=== PATIENT | female | born 1960 | race African-American/Black ===

== ENCOUNTER 2018-11-26 10:52 | Inpatient (IN) | payer BC ==
[~2018-11-26 10:52] MED LIST: DEXAMETHASONE SOD PHOSPHATE INJ 4 MG/1 ML VIAL ONE; GLYCOPYRROLATE 1 MG/5 ML SYRINGE ONE; NEOSTIGMINE METHYLSULFATE 10 MG/10 ML VIAL ONE; ONDANSETRON HCL INJ/PF 4 MG/2 ML SDV ONE; PHENYLEPHRINE HCL INJ/PF 10 MG/1 ML SDV ONE; ROCURONIUM BROMIDE INJ 50 MG/5 ML VIAL IV ONE; SUCCINYLCHOLINE CHLORIDE INJ 200 MG/10 ML VIAL ONE
[2018-11-26] MEDS ORDERED: NORMAL SALINE 1000 ML 1,000 ML IV ONE ×3 (11:36→16:01)
[2018-11-26] MEDS ORDERED: MORPHINE SULFATE 10 MG/ML INJ IV ONE (11:37)
[2018-11-26] MEDS ORDERED: ONDANSETRON HCL INJ/PF 4 MG/2 ML SDV IV ONE (11:37)
--- NOTE | 2018-11-26 11:40 | ER Document Report ---
ED Medical Screen (RME) - General Chief Complaint: Abdominal Pain >50 Stated Complaint: POSSIBLE HERNIA Time Seen by Provider: 11/26/18 11:27 Notes: Patient is a 58-year-old female with history of ventral hernia that presents to the emergency department for chief complaint of hernia "popping out". Patient states that she was diagnosed with a ventral hernia about 5 weeks ago, had it manually reduced in the emergency department in [place] where she lives, she is set up for surgery in January to repair this, but last night the hernia came out again and she is been having pain, nausea and vomiting, she has passed gas, has not had a bowel movement. ROS: Other than noted above, the 12 point review of systems was reviewed with the patient and were negative, all pertinent findings are included in the HPI. PHYSICAL EXAMINATION: Vital signs reviewed. GENERAL: Well-appearing, well-nourished and in no acute distress. HEAD: Atraumatic, normocephalic. EYES: Pupils equal round extraocular movements intact, conjunctiva are normal. ENT: Nares patent NECK: Normal range of motion CV: Heart regular rate and rhythm LUNGS: No respiratory distress Abdomen: Firm palpable mass in the right lower quadrant of the abdomen, tenderness to palpation Musculoskeletal: Normal range of motion NEUROLOGICAL: Normal speech PSYCH: Normal mood, normal affect. MDM: Patient seen and examined for rapid initial assessment. Vital signs reviewed. A comprehensive ED assessment and evaluation of the patient, analysis of test results and completion of the medical decision making process will be conducted by additional ED providers. *Note is created using voice recognition software and may contain spelling, syntax or grammatical errors. TRAVEL OUTSIDE OF THE [place] IN LAST 30 DAYS: No - Related Data Allergies/Adverse Reactions: lisinopril Allergy (Verified 11/26/18 11:26) Past Medical History - Social History Frequency of alcohol use: None Drug Abuse: None - Past Medical History Cardiac Medical History: Reports: Hx Hypertension Endocrine Medical History: Reports: Hx Diabetes Mellitus Type 2 Renal/ Medical History: Denies: Hx Peritoneal Dialysis Past Surgical History: Reports: Hx Section - x4 Physical Exam - Vital signs Vitals: Temp Pulse Resp BP Pulse Ox 98.9 F 65 16 152/91 H 100 11/26/18 10:57 11/26/18 10:57 11/26/18 10:57 11/26/18 10:57 11/26/18 10:57 Course - Vital Signs Vital signs: Temp Pulse Resp BP Pulse Ox 98.9 F 65 16 152/91 H 100 11/26/18 10:57 11/26/18 10:57 11/26/18 10:57 11/26/18 10:57 11/26/18 10:57
--- NOTE | 2018-11-26 12:33 | RADIOLOGY REPORT (SQ) ---
EXAM DESCRIPTION: ABDOMEN 2 VIEWS COMPLETED DATE/TIME: 11/26/2018 12:23 pm REASON FOR STUDY: incarcerated ventral hernia, vomiting COMPARISON: None. NUMBER OF VIEWS: Two views. TECHNIQUE: Supine and erect/decubitus radiographic images of the abdomen acquired. LIMITATIONS: None. FINDINGS: FREE AIR: None. No abnormal gas collections. LUNG BASES: Clear. BOWEL GAS PATTERN: Nonobstructive pattern. No dilated loops or air fluid levels. CALCIFICATIONS: A 6.1 x 5.9 cm fairly well-circumscribed calcified mass in the right hemipelvis, may represent a uterine fibroid. SOFT TISSUES: No gross mass or suggestion of organomegaly. HARDWARE: None in the abdomen. BONES: No acute fracture. Bone island distal left sacrum. OTHER: No other significant finding. IMPRESSION: 1. NO RADIOGRAPHIC EVIDENCE FOR ACUTE ABDOMINAL DISEASE. 2. Large calcified uterine fibroid. TECHNICAL DOCUMENTATION: JOB ID: [id number] [employer]- All Rights Reserved Reading location - IP/workstation name: [email or web address]
[2018-11-26 13:02] LABS: ABSOLUTE BASOPHILS # (AUTO) 0.1 10^3/uL (0.0-0.2); ABSOLUTE LYMPHOCYTES (AUTO) 0.6 10^3/uL (0.5-4.7); ABSOLUTE MONOCYTES (AUTO) 0.3 10^3/uL (0.1-1.4); ABSOLUTE NEUT (AUTO) 10.2 10^3/uL (1.7-8.2); BASOPHILS % (AUTO) 0.5 % (0-2); HEMATOCRIT 47.4 % (36.0-47.0); HEMOGLOBIN 15.5 g/dL (12.0-15.5); LYMPHOCYTES % (AUTO) 5.7 % (13-45); MEAN CORPUSCULAR HEMOGLOBIN 28.2 pg (27.0-33.4); MEAN CORPUSCULAR HGB CONC 32.7 g/dL (32.0-36.0); MEAN CORPUSCULAR VOLUME 86 fl (80-97); MONOCYTES % (AUTO) 2.7 % (3-13); PLATELET COUNT 256 10^3/uL (150-450); RED CELL DISTRIBUTION WIDTH 14.4 % (11.5-14.0); SEGMENTED NEUTROPHILS % (AUTO) 91.1 % (42-78); TOTAL CELLS COUNTED % (AUTO) 100 %; WHITE BLOOD COUNT 11.2 10^3/uL (4.0-10.5)
[2018-11-26 13:21] LABS: ALANINE AMINOTRANSFERASE 20 U/L (9-52); ALBUMIN 4.7 g/dL (3.5-5.0); ALKALINE PHOSPHATASE 84 U/L (38-126); ANION GAP 14 (5-19); ASPARTATE AMINO TRANSFERASE 28 U/L (14-36); BILIRUBIN,DIRECT 0.3 mg/dL (0.0-0.4); BLOOD UREA NITROGEN 19 mg/dL (7-20); CALCIUM 10.5 mg/dL (8.4-10.2); CARBON DIOXIDE 28 mmol/L (22-30); CHLORIDE 100 mmol/L (98-107); GLUCOSE 194 mg/dL (75-110); LIPASE 25.1 U/L (23-300); POTASSIUM 4.8 mmol/L (3.6-5.0); SODIUM 141.9 mmol/L (137-145); TOTAL PROTEIN 8.4 g/dL (6.3-8.2)
[2018-11-26 13:23] LABS: AMORPHOUS SEDIMENT,URINE TRACE /HPF; APPEARANCE,URINE TURBID; BILIRUBIN,URINE NEGATIVE (NEGATIVE); COLOR,URINE YELLOW; GLUCOSE, URINE 150 mg/dL (NEGATIVE); KETONES,URINE 20 mg/dL (NEGATIVE); LEUKOCYTE ESTERASE,URINE NEGATIVE (NEGATIVE); NITRITE,URINE NEGATIVE (NEGATIVE); PROTEIN,URINE 30 mg/dL (NEGATIVE); URINE SPECIFIC GRAVITY 1.034; UROBILINOGEN,URINE NEGATIVE mg/dL (<2.0)
--- NOTE | 2018-11-26 15:06 | RADIOLOGY REPORT (SQ) ---
EXAM DESCRIPTION: CT ABD/PELVIS WITH IV ONLY COMPLETED DATE/TIME: 11/26/2018 2:28 pm REASON FOR STUDY: fall, rib fx, RUQ and side pain COMPARISON: None. TECHNIQUE: CT scan of the abdomen and pelvis performed using helical scanning technique with dynamic intravenous contrast injection. No oral contrast. Images reviewed with lung, soft tissue, and bone windows. Reconstructed coronal and sagittal MPR images reviewed. Delayed images for evaluation of the urinary system also acquired. All images stored on PACS. All CT scanners at this facility use dose modulation, iterative reconstruction, and/or weight based d osing when appropriate to reduce radiation dose to as low as reasonably achievable (ALARA). [facility]: Dose Right [facility]: CareDose [facility]: Dose Right [facility]: Teradose 4D [facility]: Knome CONTRAST TYPE AND DOSE: contrast/concentration: Isovue 350.00 mg/ml; Total Contrast Delivered: 100.0 ml; Total Saline Delivered: 72.0 ml RENAL FUNCTION: Not recorded here. See manufacturing engineering technologist notes. RADIATION DOSE: CT Rad equipment meets quality standard of care and radiation dose reduction techniq ues were employed. CTDIvol: 19.6 - 20.9 mGy. DLP: 2304 mGy-cm.. LIMITATIONS: None. FINDINGS: LOWER CHEST: No significant findings. No nodules or infiltrates. LIVER: Normal size. No masses. No dilated ducts. SPLEEN: Normal size. No focal lesions. PANCREAS: No masses. No significant calcifications. No adjacent inflammation or peripancreatic fluid collections. Pancreatic duct not dilated. GALLBLADDER: No identified stones by CT criteria. No inflammatory changes to suggest cholecystitis. ADRENAL GLANDS: No significant masses or asymmetry. RIGHT KIDNEY AND URETER: No solid masses. No significant calcifications. No hydronephrosis or hyd roureter. LEFT KIDNEY AND URETER: No solid masses. No significant calcifications. No hydronephrosis or hydr oureter. AORTA AND VESSELS: No aneurysm. No dissection. Renal arteries, SMA, celiac without stenosis. RETROPERITONEUM: No retroperitoneal adenopathy, hemorrhage or masses. BOWEL AND PERITONEAL CAVITY: There is mildly dilated bowel in a prominent ventral hernia. There is a lso a loop of small bowel that is somewhat dilated in the pelvis on the left. There is thickening of the wall of this loop of bowel. There is moderate ascites. APPENDIX: Not identified. PELVIS: There is large calcified uterine fibroid. No abnormal pelvic mass. There is some free fluid in the pelvis. ABDOMINAL WALL: 5 cm wide ventral hernia contains a loop of somewhat dilated bowel. BONES: Anterolisthesis of L4 on L5. No osseous lesions. No fracture is appreciated. OTHER: No other significant finding. IMPRESSION: 1. There is some mildly dilated small bowel in a ventral hernia and within the pelvis c oncerning for closed loop obstruction. 2. Anterolisthesis of L4 on L5. 3. Ascites. COMMENT: Pertinent findings on the imaging study reported as a CRITICAL RESULT to ECTOR Wadsworth PA-C at15:01 on 11/26/2018. TECHNICAL DOCUMENTATION: JOB ID: [id number] Quality ID # [id number]: Final reports with documentation of one or more dose reduction techniques (e.g., Au tomated exposure control, adjustment of the mA and/or kV according to patient size, use of iterative reconstruction technique) 2010 [employer]- All Rights Reserved Reading location - IP/workstation name: [email or web address]
--- NOTE | 2018-11-26 15:16 | ER Document Report ---
ED General - General Chief Complaint: Abdominal Pain >50 Stated Complaint: POSSIBLE HERNIA Time Seen by Provider: 11/26/18 11:27 Notes: 58-year-old female with history of ventral hernia that presents to the emergency department for chief complaint of hernia "popping out". Patient states that she was diagnosed with a ventral hernia about 5 weeks ago, had it manually reduced in the emergency department in [place] where she lives, she is set up for surgery in January to repair this, but last night the hernia came out again and she is been having pain, nausea and vomiting, she has passed gas, has not had a bowel movement. Patient denies shortness of breath or chest pain, fevers or chills, no other symptoms. TRAVEL OUTSIDE OF THE [place] IN LAST 30 DAYS: No - Related Data Allergies/Adverse Reactions: lisinopril Allergy (Verified 11/26/18 11:26) Past Medical History - Social History Smoking Status: Former Smoker Frequency of alcohol use: None Drug Abuse: None Family History: None Patient has suicidal ideation: No Patient has homicidal ideation: No - Past Medical History Cardiac Medical History: Reports: Hx Hypertension Endocrine Medical History: Reports: Hx Diabetes Mellitus Type 2 Renal/ Medical History: Denies: Hx Peritoneal Dialysis Past Surgical History: Reports: Hx Section - x4 Review of Systems - Review of Systems Constitutional: See HPI EENT: No symptoms reported Cardiovascular: See HPI Respiratory: See HPI Gastrointestinal: See HPI Genitourinary: No symptoms reported Female Genitourinary: No symptoms reported Musculoskeletal: No symptoms reported Skin: No symptoms reported Hematologic/Lymphatic: No symptoms reported Neurological/Psychological: No symptoms reported Physical Exam - Vital signs Vitals: Temp Pulse Resp BP Pulse Ox 98.9 F 65 16 152/91 H 100 11/26/18 10:57 11/26/18 10:57 11/26/18 10:57 11/26/18 10:57 11/26/18 10:57 - Notes Notes: PHYSICAL EXAMINATION: Reviewed vital signs and charting by RN GENERAL: Alert, interacts well. No acute distress. HEAD: Normocephalic, atraumatic. EYES: Pupils equal, round. Extraocular movements intact. ENT: Oral mucosa moist, tongue midline. NECK: Full range of motion. Trachea midline. LUNGS: Clear to auscultation bilaterally, no wheezes, rales, or rhonchi. No respiratory distress. HEART: Regular rate and rhythm. No murmur ABDOMEN: Firm, large mass right lower quadrant consistent with ventral hernia, distended. Bowel sounds present in all 4 quadrants. EXTREMITIES: Moves all 4 extremities spontaneously. No edema, No cyanosis. NEUROLOGICAL: Alert and oriented. Normal speech. PSYCH: Normal affect, normal mood. SKIN: Warm, dry, normal turgor. No rashes or lesions noted. Course - Re-evaluation Re-evalutation: 11/26/18 15:15 Overall well-appearing female presents for her existing ventral hernia "popping out". CT abdomen with IV contrast only obtained from radiologist with critical finding for concern for closed loop small bowel obstruction. Called Dr. Moya, surgical list on-call, who is going to formally assess the patient. Of note patient with an initial lactate of 2.5 and she received 1 L of fluids. I will start a second liter of fluids. 11/26/18 15:[address] Moya, he is going to look at CT imaging and admit patient. He is concerned that there may be ischemic bowel and may need to go to the OR. Plan is to give hydralazine 10 mg IV 1 time. 1 second liter is infused we will give normal saline 125 mL's per hour. Second lactate is ordered and will be drawn after second bolus is given. 11/26/18 16:10 Dr. Moya is taking patient to the OR and excepting patient for full admission. - Vital Signs Vital signs: Temp Pulse Resp BP Pulse Ox 98.5 F 65 16 173/91 H 100 11/26/18 15:42 11/26/18 10:57 11/26/18 15:39 11/26/18 15:39 11/26/18 15:39 - Laboratory Result Diagrams: 11/26/18 12:39 11/26/18 12:39 Laboratory results interpreted by me: 11/26/18 11/26/18 11/26/18 12:39 12:39 12:39 WBC 11.2 H RBC 5.50 H Hct 47.4 H RDW 14.4 H Seg Neutrophils % 91.1 H Lymphocytes % 5.7 L Monocytes % 2.7 L Absolute Neutrophils 10.2 H Glucose 194 H Lactic Acid 2.5 H Calcium 10.5 H Total Protein 8.4 H Urine Protein Urine Glucose (UA) Urine Ketones Urine Blood 11/26/18 12:39 WBC RBC Hct RDW Seg Neutrophils % Lymphocytes % Monocytes % Absolute Neutrophils Glucose Lactic Acid Calcium Total Protein Urine Protein 30 H Urine Glucose (UA) 150 H Urine Ketones 20 H Urine Blood SMALL H Discharge - Discharge Clinical Impression: SBO (small bowel obstruction) Condition: Stable Disposition: ADMITTED INPATIENT Admitting Provider: Surgicalist Unit Admitted: Surgical Floor
--- NOTE | 2018-11-26 15:57 | PDOC H&P ---
History of Present Illness Patient complains of: abdominal pain, bulge History of Present Illness: MC VILLELA is a 58 year old female with a hx of lower right abdominal ventral hernia scheduled to be operated on by a surgeon in [place]; however, she is from out of town visiting family and noted the onset of painful swelling in the right lateral abdominal quadrant. She reports nausea and vomiting, last BM yesterday. Past Medical History Cardiac Medical History: Reports: Hypertension Endocrine Medical History: Reports: Diabetes Mellitus Type 2 Past Surgical History Past Surgical History: Reports: Section - x4 Social History Smoking Status: Former Smoker Family History Parental Family History Reviewed: No Children Family History Reviewed: No Sibling(s) Family History Reviewed.: No Medication/Allergy Allergies/Adverse Reactions: lisinopril Allergy (Verified 11/26/18 11:26) Physical Exam Vital Signs: Temp Pulse Resp BP Pulse Ox 98.9 F 65 19 198/93 H 98 11/26/18 10:57 11/26/18 10:57 11/26/18 14:00 11/26/18 14:00 11/26/18 14:00 Intake & Output 11/25/18 11/26/18 11/27/18 06:59 06:59 06:59 Weight 102.9 kg General appearance: PRESENT: no acute distress Head exam: PRESENT: atraumatic Eye exam: PRESENT: EOMI Mouth exam: PRESENT: neck supple Teeth exam: PRESENT: poor dentation Neck exam: PRESENT: full ROM Respiratory exam: PRESENT: clear to auscultation michael Cardiovascular exam: PRESENT: RRR GI/Abdominal exam: PRESENT: tenderness - in the RLQ with large indurated mass about 15 cm in doiameter with grimacing on palpation Extremities exam: PRESENT: full ROM Musculoskeletal exam: PRESENT: full ROM Neurological exam: PRESENT: alert, awake Psychiatric exam: PRESENT: appropriate affect Skin exam: PRESENT: warm Results Laboratory Results: 11/26/18 12:39 11/26/18 12:39 11/26/18 11/26/18 11/26/18 12:39 12:39 12:39 WBC 11.2 H RBC 5.50 H Hgb 15.5 Hct 47.4 H MCV 86 MCH 28.2 MCHC 32.7 RDW 14.4 H Plt Count 256 Seg Neutrophils % 91.1 H Lymphocytes % 5.7 L Monocytes % 2.7 L Eosinophils % 0.0 Basophils % 0.5 Absolute Neutrophils 10.2 H Absolute Lymphocytes 0.6 Absolute Monocytes 0.3 Absolute Eosinophils 0.0 Absolute Basophils 0.1 Sodium 141.9 Potassium 4.8 Chloride 100 Carbon Dioxide 28 Anion Gap 14 BUN 19 Creatinine 0.79 Est GFR ( Amer) > 60 Est GFR (Non-Af Amer) > 60 Glucose 194 H Lactic Acid 2.5 H Calcium 10.5 H Total Bilirubin 1.0 AST 28 ALT 20 Alkaline Phosphatase 84 Total Protein 8.4 H Albumin 4.7 Lipase 25.1 Urine Color Urine Appearance Urine pH Ur Specific [place] Urine Protein Urine Glucose (UA) Urine Ketones Urine Blood Urine Nitrite Ur Leukocyte Esterase Urine WBC (Auto) Urine RBC (Auto) 11/26/18 12:39 WBC RBC Hgb Hct MCV MCH MCHC RDW Plt Count Seg Neutrophils % Lymphocytes % Monocytes % Eosinophils % Basophils % Absolute Neutrophils Absolute Lymphocytes Absolute Monocytes Absolute Eosinophils Absolute Basophils Sodium Potassium Chloride Carbon Dioxide Anion Gap BUN Creatinine Est GFR ( Amer) Est GFR (Non-Af Amer) Glucose Lactic Acid Calcium Total Bilirubin AST ALT Alkaline Phosphatase Total Protein Albumin Lipase Urine Color YELLOW Urine Appearance TURBID Urine pH 5.0 Ur Specific [place] 1.034 Urine Protein 30 H Urine Glucose (UA) 150 H Urine Ketones 20 H Urine Blood SMALL H Urine Nitrite NEGATIVE Ur Leukocyte Esterase NEGATIVE Urine WBC (Auto) 1 Urine RBC (Auto) 1 Impressions: Abdomen X-Ray 11/26/18 11:36 IMPRESSION: 1. NO RADIOGRAPHIC EVIDENCE FOR ACUTE ABDOMINAL DISEASE. 2. Large calcified uterine fibroid. Abdomen/Pelvis CT 11/26/18 13:51 IMPRESSION: 1. There is some mildly dilated small bowel in a ventral hernia and within the pelvis concerning for closed loop obstruction. 2. Anterolisthesis of L4 on L5. 3. Ascites. Assessment & Plan - Plan Summary Plan Summary: A/ RLQ abdominal pain with bulge Incarcerated ventral hernia on physical exam and CT scan, possibly strangulated Elevated lactic acid (2.0) nausea/vomiting HTN not treated (BP 73/91) Mild leukocytosis P/ Urgent open repair with absorbable mesh tonight, possible bowel resection NPO IVF Preop Abx (Mefoxin 2 grams) Admit as inpatient Hydralazine 10 mg IVP preop for her hypertension Procedure, risks, benefits, complications explained to the patient, she understand all the above and decides to proceed.
[2018-11-26] MEDS ORDERED: NORMAL SALINE 1000 ML 1,000 ML IV PRN (15:59)
[2018-11-26] MEDS ORDERED: HYDRALAZINE HCL INJ/PF 20 MG/1 ML SDV IV ONE (16:00)
[2018-11-26] MEDS ORDERED: FENTANYL CITRATE INJ/PF 250 MCG/5 ML AMPULE ONE (16:32)
[2018-11-26] MEDS ORDERED: ACETAMINOPHEN 1,000 MG/100 ML RTUPB IV ONE (16:33)
[2018-11-26] MEDS ORDERED: HYDROMORPHONE HCL INJ/PF 2 MG/ML AMPULE ONE (16:33)
[2018-11-26] MEDS ORDERED: PROPOFOL INJ 200 MG/20 ML VIAL IV ONE (16:33)
[2018-11-26] MEDS ORDERED: MIDAZOLAM 2 MG/2 ML INJ ONE (16:33)
[2018-11-26] MEDS ORDERED: CEFOXITIN 1 GM/D5W RTU 1 GM/50 ML RTUPB IV SCH (17:00)
--- NOTE | 2018-11-26 17:06 | EKG REPORT ---
SEVERITY:- NORMAL ECG - SINUS RHYTHM : Confirmed by: Sal Burnett MD 26-Nov-2018 17:06:21
[2018-11-26] MEDS ORDERED: DIPHENHYDRAMINE HCL 50 MG/ML VIAL IV PRN (17:31)
[2018-11-26] MEDS ORDERED: MEPERIDINE HCL/PF INJ 25 MG/1 ML DISP.SYRIN IV PRN (17:31)
[2018-11-26] MEDS ORDERED: MORPHINE SULFATE 10 MG/ML INJ IV PRN (17:31)
[2018-11-26] MEDS ORDERED: PROMETHAZINE HCL INJ 25 MG/1 ML VIAL IV PRN (17:31)
[2018-11-26] MEDS ORDERED: FENTANYL CITRATE INJ/PF 100 MCG/2 ML AMPUL IV PRN ×3 (17:31)
[2018-11-26] MEDS ORDERED: HYDRALAZINE HCL INJ/PF 20 MG/1 ML SDV IV PRN (19:25)
--- NOTE | 2018-11-26 20:51 | Operative Report ---
Nonrecallable Operative Report DATE OF SURGERY: 11/26/18 PREOPERATIVE DIAGNOSIS: incarcerated ventral hernia POSTOPERATIVE DIAGNOSIS: strangulated ventral hernia with small bowel (terminal ileum) necrosis OPERATION: 1) exploratory laparotomy. 2) Small bowel resection. 3) Open ventral herniorraphy with bilateral component separation and absorbable mesh. 4) Revision of abdominal surgical wound skin SURGEON: TATA ARAIZA ANESTHESIA: GA TISSUE REMOVED OR ALTERED: terminal ileum (2 feet). abdominal wall skin COMPLICATIONS: none ESTIMATED BLOOD LOSS: 100 mL INTRAOPERATIVE FINDINGS: hernia defect in the RLQ; necrotic loops of terminal ileum (2 feet); PROCEDURE: see dictation
[2018-11-26] MEDS ORDERED: DEXTROSE 40% GEL 15 GM TUBE PO PRN ×2 (20:52)
[2018-11-26] MEDS ORDERED: ONDANSETRON HCL INJ/PF 4 MG/2 ML SDV IV PRN (20:52)
[2018-11-26] MEDS ORDERED: GLUCAGON,HUMAN RECOMB 1 MG INJ SUBCUT PRN (20:52)
[2018-11-26] MEDS ORDERED: DEXTROSE 50%-WATER 25 GM/50 ML DISP.SYRIN IV PRN ×2 (20:52)
[2018-11-26] MEDS ORDERED: PHARMACY COMMUNICATION ORDER MC NR (21:00)
--- NOTE | 2018-11-26 23:53 | RADIOLOGY REPORT (SQ) ---
EXAM DESCRIPTION: XR ABDOMEN 1 VIEW (KUB) COMPLETED DATE/TME: 11/26/2018 20:56 CLINICAL HISTORY: 58 years, Female, Check Placement of NG Tube COMPARISON: CT from today's date. 2 view abdomen from today's date. NUMBER OF VIEWS: 2 TECHNIQUE: AP abdomen LIMITATIONS: None. FINDINGS: The first submitted image is timed at 11:08 PM. On this image there is an enteric tube with the tip in the epigastric region. The second submitted image is dated/time 11:33 PM. On this image the enteric tube is in the left upper quadrant, likely in the stomach. The bowel gas pattern is nonspecific. A few mildly prominent air-filled loops of small bowel are present. Surgical enrrique overlie the lower pelvic region. Surgical drain overlies the pelvis. Large calcified uterine fibroid. Evaluation for free air limited on a supine view. IMPRESSION: On the second submitted image, the enteric tube is likely in the stomach. Other findings, as above copyright 2010 [employer]- All Rights Reserved
[2018-11-27] MEDS ORDERED: ACETAMINOPHEN 1,000 MG/100 ML RTUPB IV SCH
[2018-11-27] MEDS: FAMOTIDINE INJ/PF 20 MG/2 ML SDV IV SCH ×3 (03:43→21:12)
[2018-11-27] MEDS ORDERED: ACETAMINOPHEN 1,000 MG/100 ML RTUPB IV ONE (03:45)
[2018-11-27] MEDS ORDERED: PIPERACILLIN/TAZOBACTAM 3.375 GM VIAL IV ONE (04:36)
[2018-11-27] MEDS ORDERED: CEFOXITIN INJ 1 GM VIAL ONE (05:29)
[2018-11-27 05:39] LABS: ANION GAP 5 (5-19); BLOOD UREA NITROGEN 15 mg/dL (7-20); CARBON DIOXIDE 27 mmol/L (22-30); CHLORIDE 109 mmol/L (98-107); GLUCOSE 129 mg/dL (75-110); POTASSIUM 4.5 mmol/L (3.6-5.0); SODIUM 140.9 mmol/L (137-145)
[2018-11-27] MEDS: CEFOXITIN 1 GM/D5W RTU 1 GM/50 ML RTUPB IV SCH ×2 (06:31→18:39)
--- NOTE | 2018-11-27 07:16 | PDOC CONSULTATION ---
Consultation Consult Date: 11/26/18 Attending physician:: TATA ARAIZA Consult reason:: Hypertension History of Present Illness Admission Date/PCP: 11/26/18 15:41 Patient complains of: Abdominal pain History of Present Illness: MC VILLELA is a 58 year old female with history of hypertension and diabetes presenting with abdominal pain. CT reveals ventral hernia with strangulation. She is admitted n.p.o. to surgery. Past Medical History Cardiac Medical History: Reports: Hypertension Endocrine Medical History: Reports: Diabetes Mellitus Type 2 Past Surgical History Past Surgical History: Reports: Section - x4 Social History Information Source: [facility] Records Smoking Status: Former Smoker Frequency of Alcohol Use: None Hx Recreational Drug Use: No Drugs: None Hx Prescription Drug Abuse: No - Advance Directive Resuscitation Status: Full Code Family History Family History: Hypertension Parental Family History Reviewed: Yes Children Family History Reviewed: Yes Sibling(s) Family History Reviewed.: Yes Medication/Allergy Allergies/Adverse Reactions: lisinopril Allergy (Verified 11/26/18 11:26) Review of Systems ROS unobtainable: Due to endotracheal tube Physical Exam Vital Signs: Temp Pulse Resp BP Pulse Ox 97.6 F 80 18 127/70 H 100 11/27/18 01:50 11/27/18 01:50 11/27/18 01:50 11/27/18 01:50 11/27/18 01:50 Intake & Output 11/25/18 11/26/18 11/27/18 11:59 11:59 11:59 Intake Total 6850 Output Total 3950 Balance 2900 Weight 102.9 kg 102.9 kg General appearance: PRESENT: other - Patient in the OR, not seen or examined Results Laboratory Results: 11/27/18 04:55 11/26/18 11/26/18 11/26/18 12:39 12:39 12:39 WBC 11.2 H RBC 5.50 H Hgb 15.5 Hct 47.4 H MCV 86 MCH 28.2 MCHC 32.7 RDW 14.4 H Plt Count 256 Seg Neutrophils % 91.1 H Lymphocytes % 5.7 L Monocytes % 2.7 L Eosinophils % 0.0 Basophils % 0.5 Absolute Neutrophils 10.2 H Absolute Lymphocytes 0.6 Absolute Monocytes 0.3 Absolute Eosinophils 0.0 Absolute Basophils 0.1 Sodium 141.9 Potassium 4.8 Chloride 100 Carbon Dioxide 28 Anion Gap 14 BUN 19 Creatinine 0.79 Est GFR ( Amer) > 60 Est GFR (Non-Af Amer) > 60 Glucose 194 H Lactic Acid 2.5 H Calcium 10.5 H Total Bilirubin 1.0 AST 28 ALT 20 Alkaline Phosphatase 84 Total Protein 8.4 H Albumin 4.7 Lipase 25.1 Urine Color Urine Appearance Urine pH Ur Specific [place] Urine Protein Urine Glucose (UA) Urine Ketones Urine Blood Urine Nitrite Ur Leukocyte Esterase Urine WBC (Auto) Urine RBC (Auto) 11/26/18 11/26/18 11/27/18 12:39 21:10 04:55 WBC RBC Hgb Hct MCV MCH MCHC RDW Plt Count Seg Neutrophils % Lymphocytes % Monocytes % Eosinophils % Basophils % Absolute Neutrophils Absolute Lymphocytes Absolute Monocytes Absolute Eosinophils Absolute Basophils Sodium 140.9 Potassium 4.5 Chloride 109 H Carbon Dioxide 27 Anion Gap 5 BUN 15 Creatinine 0.66 Est GFR ( Amer) > 60 Est GFR (Non-Af Amer) > 60 Glucose 129 H Lactic Acid 1.4 Calcium 8.0 L Total Bilirubin AST ALT Alkaline Phosphatase Total Protein Albumin Lipase Urine Color YELLOW Urine Appearance TURBID Urine pH 5.0 Ur Specific [place] 1.034 Urine Protein 30 H Urine Glucose (UA) 150 H Urine Ketones 20 H Urine Blood SMALL H Urine Nitrite NEGATIVE Ur Leukocyte Esterase NEGATIVE Urine WBC (Auto) 1 Urine RBC (Auto) 1 Impressions: Abdomen X-Ray 11/26/18 11:36 IMPRESSION: 1. NO RADIOGRAPHIC EVIDENCE FOR ACUTE ABDOMINAL DISEASE. 2. Large calcified uterine fibroid. Abdomen/Pelvis CT 11/26/18 13:51 IMPRESSION: 1. There is some mildly dilated small bowel in a ventral hernia and within the pelvis concerning for closed loop obstruction. 2. Anterolisthesis of L4 on L5. 3. Ascites. KUB X-Ray 11/26/18 20:56 IMPRESSION: On the second submitted image, the enteric tube is likely in the stomach. Other findings, as above copyright 2010 [employer]- All Rights Reserved Assessment & Plan - Diagnosis (1) Hypertension Is this a current diagnosis for this admission?: Yes Plan: Hydralazine 10 mg IV every 6 as needed systolic greater than 160 (2) Diabetes Is this a current diagnosis for this admission?: Yes Plan: Humalog sliding scale every 6 hours while n.p.o. (3) Incarcerated ventral hernia Is this a current diagnosis for this admission?: Yes Plan: Defer to surgery - Time Time Spent: 30 to 50 Minutes - Inpatient Certification Medical Necessity: Need Close Monitoring Due to Risk of Patient Decompensation
[2018-11-27 07:47] LABS: ABSOLUTE LYMPHOCYTES (AUTO) 1.1 10^3/uL (0.5-4.7); ABSOLUTE MONOCYTES (AUTO) 1.2 10^3/uL (0.1-1.4); ABSOLUTE NEUT (AUTO) 11.6 10^3/uL (1.7-8.2); BASOPHILS % (AUTO) 0.3 % (0-2); LYMPHOCYTES % (AUTO) 7.9 % (13-45); MEAN CORPUSCULAR HEMOGLOBIN 28.1 pg (27.0-33.4); MEAN CORPUSCULAR HGB CONC 32.8 g/dL (32.0-36.0); MEAN CORPUSCULAR VOLUME 86 fl (80-97); MONOCYTES % (AUTO) 8.3 % (3-13); PLATELET COUNT 177 10^3/uL (150-450); RED BLOOD COUNT 4.42 10^6/uL (3.72-5.28); RED CELL DISTRIBUTION WIDTH 14.4 % (11.5-14.0); SEGMENTED NEUTROPHILS % (AUTO) 83.5 % (42-78); TOTAL CELLS COUNTED % (AUTO) 100 %; WHITE BLOOD COUNT 13.9 10^3/uL (4.0-10.5)
[2018-11-27 08:06] LABS: HEMOGLOBIN 12.4 g/dL (12.0-15.5)
[2018-11-27] MEDS: ACETAMINOPHEN 1,000 MG/100 ML RTUPB IV SCH ×3 (09:12→20:16)
[2018-11-27] MEDS: PIPERACILLIN SODIUM/TAZOBACTAM 3.375 GM in NORMAL SALINE 100 ML IV SCH ×5 (09:46→21:09)
--- NOTE | 2018-11-27 10:51 | PDOC PROGRESS REPORT ---
Subjective Progress Note for:: 11/27/18 Subjective:: comfortable, minimal incisional pain Reason For Visit: STRANGULATED VENTRAL HERNIA Physical Exam Vital Signs: Temp Pulse Resp BP Pulse Ox 98.6 F 95 16 124/66 100 11/27/18 07:17 11/27/18 07:17 11/27/18 07:17 11/27/18 07:17 11/27/18 07:17 Intake & Output 11/26/18 11/27/18 11/28/18 06:59 06:59 06:59 Intake Total 6850 150 Output Total 3950 Balance 2900 150 Weight 102.9 kg General appearance: PRESENT: no acute distress Respiratory exam: PRESENT: clear to auscultation michael Cardiovascular exam: PRESENT: RRR GI/Abdominal exam: PRESENT: soft, other - incision C/D/I, no hernia recurrance, Sammy drain in the RLQ with serosanguinous fluid Results Laboratory Results: 11/27/18 04:55 11/27/18 04:55 11/26/18 11/26/18 11/26/18 12:39 12:39 12:39 WBC 11.2 H RBC 5.50 H Hgb 15.5 Hct 47.4 H MCV 86 MCH 28.2 MCHC 32.7 RDW 14.4 H Plt Count 256 Seg Neutrophils % 91.1 H Lymphocytes % 5.7 L Monocytes % 2.7 L Eosinophils % 0.0 Basophils % 0.5 Absolute Neutrophils 10.2 H Absolute Lymphocytes 0.6 Absolute Monocytes 0.3 Absolute Eosinophils 0.0 Absolute Basophils 0.1 Sodium 141.9 Potassium 4.8 Chloride 100 Carbon Dioxide 28 Anion Gap 14 BUN 19 Creatinine 0.79 Est GFR ( Amer) > 60 Est GFR (Non-Af Amer) > 60 Glucose 194 H Lactic Acid 2.5 H Calcium 10.5 H Total Bilirubin 1.0 AST 28 ALT 20 Alkaline Phosphatase 84 Total Protein 8.4 H Albumin 4.7 Lipase 25.1 Urine Color Urine Appearance Urine pH Ur Specific [place] Urine Protein Urine Glucose (UA) Urine Ketones Urine Blood Urine Nitrite Ur Leukocyte Esterase Urine WBC (Auto) Urine RBC (Auto) 11/26/18 11/26/18 11/27/18 12:39 21:10 04:55 WBC 13.9 H RBC 4.42 Hgb 12.4 D Hct 38.0 MCV 86 MCH 28.1 MCHC 32.8 RDW 14.4 H Plt Count 177 Seg Neutrophils % 83.5 H Lymphocytes % 7.9 L Monocytes % 8.3 Eosinophils % 0.0 Basophils % 0.3 Absolute Neutrophils 11.6 H Absolute Lymphocytes 1.1 Absolute Monocytes 1.2 Absolute Eosinophils 0.0 Absolute Basophils 0.0 Sodium Potassium Chloride Carbon Dioxide Anion Gap BUN Creatinine Est GFR ( Amer) Est GFR (Non-Af Amer) Glucose Lactic Acid 1.4 Calcium Total Bilirubin AST ALT Alkaline Phosphatase Total Protein Albumin Lipase Urine Color YELLOW Urine Appearance TURBID Urine pH 5.0 Ur Specific [place] 1.034 Urine Protein 30 H Urine Glucose (UA) 150 H Urine Ketones 20 H Urine Blood SMALL H Urine Nitrite NEGATIVE Ur Leukocyte Esterase NEGATIVE Urine WBC (Auto) 1 Urine RBC (Auto) 1 11/27/18 04:55 WBC RBC Hgb Hct MCV MCH MCHC RDW Plt Count Seg Neutrophils % Lymphocytes % Monocytes % Eosinophils % Basophils % Absolute Neutrophils Absolute Lymphocytes Absolute Monocytes Absolute Eosinophils Absolute Basophils Sodium 140.9 Potassium 4.5 Chloride 109 H Carbon Dioxide 27 Anion Gap 5 BUN 15 Creatinine 0.66 Est GFR ( Amer) > 60 Est GFR (Non-Af Amer) > 60 Glucose 129 H Lactic Acid Calcium 8.0 L Total Bilirubin AST ALT Alkaline Phosphatase Total Protein Albumin Lipase Urine Color Urine Appearance Urine pH Ur Specific [place] Urine Protein Urine Glucose (UA) Urine Ketones Urine Blood Urine Nitrite Ur Leukocyte Esterase Urine WBC (Auto) Urine RBC (Auto) Impressions: Abdomen X-Ray 11/26/18 11:36 IMPRESSION: 1. NO RADIOGRAPHIC EVIDENCE FOR ACUTE ABDOMINAL DISEASE. 2. Large calcified uterine fibroid. Abdomen/Pelvis CT 11/26/18 13:51 IMPRESSION: 1. There is some mildly dilated small bowel in a ventral hernia and within the pelvis concerning for closed loop obstruction. 2. Anterolisthesis of L4 on L5. 3. Ascites. KUB X-Ray 11/26/18 20:56 IMPRESSION: On the second submitted image, the enteric tube is likely in the stomach. Other findings, as above copyright 2010 [employer]- All Rights Reserved Assessment & Plan - Diagnosis (1) Strangulated ventral incisional hernia Is this a current diagnosis for this admission?: Yes - Plan Summary Plan Summary: A/ POD#1 after laparotomy, small bowel resection, and open ventral hernia repair with component separation and absorbable mesh VSS, AF good UO scant NGT output Sammy drain @ 80 mL of serosanguinous fluid WBC 13.9 BMO normal Intraoperative Cx negative P/ Incentive spirometer tooth brushing TID OOB, up in chair TID increase IVF 125 mL/hr continue current management
[2018-11-27] MEDS ORDERED: NORMAL SALINE 1000 ML 1,000 ML IV PRN (10:54)
--- NOTE | 2018-11-27 11:26 | OPERATIVE REPORT E ---
Operative Report NAME: MC VILLELA : 1960 AGE: 58Y DATE OF SURGERY: 11/26/2018 ROOM: 404 PREOPERATIVE DIAGNOSIS: INCARCERATED, POSSIBLY STRANGULATED VENTRAL HERNIA. POSTOPERATIVE DIAGNOSIS: STRANGULATED VENTRAL HERNIA WITH SMALL-BOWEL NECROSIS. OPERATION: 1. Laparotomy. 2. Small-bowel resection of terminal ileum. 3. Open repair of ventral hernia with bilateral component separation with absorbable mesh. 4. Debridement of skin. SURGEON: TATA ARAIZA M.D. MACHINE EGG WASHER: None. BLEEDIN FLUIDS: 2600 URINE OUTPUT: 200 DRAINS: One 15-Nepali round Sammy drain. COMPLICATIONS: None. ANESTHESIA: General. INDICATION AND FINDINGS: This is a 58-year-old [place] town who presented to the emergency room with a large bulge, painful, in the right lower quadrant of the abdomen secondary to a ventral hernia following a section several years ago. A CAT scan was done and we are seeing a large amount of small bowel within in the hernia sac. The patient presented with a slightly elevated lactic acidosis and a moderate elevated white blood cell count of 11,000. A decision was made to take the patient to surgery for a major repair of the hernia. DESCRIPTION OF PROCEDURE: The procedure was done in the operating room. The patient placed in supine position. General anesthesia induced by endotracheal intubation. Abdomen prepped and draped in usual fashion. A vertical incision was made in the midpoint of the mass in the right lower quadrant. Dissection of the skin and the subcutaneous tissue divided with Bovie. The hernia sac was identified and dissected bluntly with sharp dissection circumferentially. Following this, the hernia sac was entered. There was a moderate amount of blood and hemorrhagic fluid was noted within the sac. It was evident there was a large amount of small bowel which was completely necrotic and hemorrhagic. The incision was enlarged by inserting a finger through the defect and with Bovie, extended superiorly and inferiorly, so that the small bowel could be freed and eviscerated. When healthy small bowel proximal and distal to the area of necrotic bowel was identified, the necrotic small bowel was divided proximal and distal using a JOHANNA stapler. The mesenteric small bowel was divided with a ligature, and the specimen was sent to pathology for examination. Approximately 2 feet of terminal ileum was removed. The proximal and distal side of the small bowel were placed [id number]. Bowel clamps were applied. Antimesenteric Lembert 2-0 suture was placed to keep the 2 limbs together. The antimesenteric corner of the staple line of each limb was opened with Bovie. The JOHANNA stapler was then inserted and fired to obtain an end enterostomy. The enterotomy was then closed initially with Allis clamps and then with JOHANNA stapler and the staple line enforced with interrupted Lembert 2-0 silk sutures. The mesenteric defect was closed with a running locking 2-0 silk suture. The small bowel was replaced easily within the peritoneal cavity, which was irrigated with 2 L of normal saline and fully aspirated. The hernia defect was repaired by performing bilateral component separation. This was done by elevating adipocutaneous flaps bilaterally, superiorly, and inferiorly using Bovie. The anterior rectus sheath was identified about 2-1/2 inches far from the hernia defect, which measured 12 cm in length and 7 cm in width. The fascia was divided with Bovie to obtain bilateral component separation in the usual fashion, and this was continued superiorly and inferiorly in a circumferential fashion. At this point, two #[address] place through skin and abdominal wall muscles across the hernia opening and left untied. A large piece of absorbable mesh was placed in an inlay fashion inside the peritoneal cavity, secured to the edges of the hernia defect with interrupted 0-Prolene sutures. The fascia was then closed with running #1 looped PDS sutures. The subcutaneous tissue was irrigated with normal saline until clear. Local bleeders of the subcutaneous tissue were controlled by 2-0 silk suture ligation sutures. A stab wound was made in the left lower quadrant and a 15-Nepali Sammy drain was placed through the skin in the large subcutaneous defect. The area was irrigated with normal saline until clear. Three vials of 5 mL of Floseal were applied to the surgical field to prevent formation of a seroma. The redundant skin edges of the surgery wound were then trimmed with Bovie and sutured with interrupted deep [id number] 0-Vicryl suture and superficial interrupted [id number] 2-0 Vicryl suture. The skin was closed with enrrique. Sterile dressings were applied. The patient tolerated the procedure well, extubated, and transferred to the recovery room in satisfactory condition. DICTATING PHYSICIAN: TATA ARAIZA M.D. [id number] PHY#: [id number] ID: [id number] JOB#: [id number] ACCT: [id number] cc:TATA ARAIZA M.D. > THANH
[2018-11-27] MEDS: MORPHINE SULFATE 10 MG/ML INJ IV PRN (12:28)
[2018-11-27] MEDS: NORMAL SALINE 1000 ML 1,000 ML IV PRN (18:40)
[2018-11-28] MEDS: ACETAMINOPHEN 1,000 MG/100 ML RTUPB IV SCH ×4 (02:12→21:22)
[2018-11-28] MEDS: PIPERACILLIN SODIUM/TAZOBACTAM 3.375 GM in NORMAL SALINE 100 ML IV SCH ×4 (03:05→22:02)
[2018-11-28] MEDS: CEFOXITIN 1 GM/D5W RTU 1 GM/50 ML RTUPB IV SCH ×2 (05:32→17:39)
[2018-11-28] MEDS: NORMAL SALINE 1000 ML 1,000 ML IV PRN ×2 (05:45→15:37)
[2018-11-28 05:47] LABS: ABSOLUTE LYMPHOCYTES (AUTO) 1.5 10^3/uL (0.5-4.7); ABSOLUTE MONOCYTES (AUTO) 0.7 10^3/uL (0.1-1.4); ABSOLUTE NEUT (AUTO) 5.2 10^3/uL (1.7-8.2); BASOPHILS % (AUTO) 0.6 % (0-2); EOSINOPHILS % (AUTO) 0.3 % (0-6); HEMATOCRIT 32.2 % (36.0-47.0); HEMOGLOBIN 10.5 g/dL (12.0-15.5); LYMPHOCYTES % (AUTO) 20.3 % (13-45); MEAN CORPUSCULAR HEMOGLOBIN 28.2 pg (27.0-33.4); MEAN CORPUSCULAR HGB CONC 32.6 g/dL (32.0-36.0); MEAN CORPUSCULAR VOLUME 87 fl (80-97); MONOCYTES % (AUTO) 8.8 % (3-13); PLATELET COUNT 145 10^3/uL (150-450); RED BLOOD COUNT 3.72 10^6/uL (3.72-5.28); RED CELL DISTRIBUTION WIDTH 14.4 % (11.5-14.0); TOTAL CELLS COUNTED % (AUTO) 100 %; WHITE BLOOD COUNT 7.4 10^3/uL (4.0-10.5)
[2018-11-28 06:20] LABS: ANION GAP 6 (5-19); BLOOD UREA NITROGEN 13 mg/dL (7-20); CALCIUM 7.9 mg/dL (8.4-10.2); CARBON DIOXIDE 24 mmol/L (22-30); CHLORIDE 112 mmol/L (98-107); GLUCOSE 86 mg/dL (75-110); POTASSIUM 3.9 mmol/L (3.6-5.0)
--- NOTE | 2018-11-28 08:06 | PDOC PROGRESS REPORT ---
Subjective Progress Note for:: 11/27/18 Subjective:: Still with abdominal pain from her surgery. Still with nasogastric tube. Reason For Visit: STRANGULATED VENTRAL HERNIA Consult for hypertension Physical Exam Vital Signs: Temp Pulse Resp BP Pulse Ox 98.5 F 87 18 130/69 H 99 11/27/18 16:48 11/27/18 16:48 11/27/18 16:48 11/27/18 16:48 11/27/18 16:48 Intake & Output 11/26/18 11/27/18 11/28/18 06:59 06:59 06:59 Intake Total 6850 350 Output Total 3950 805 Balance 2900 -455 Weight 102.9 kg General appearance: PRESENT: cooperative, mild distress - Sitting up in the chair., well-developed Head exam: PRESENT: normocephalic Mouth exam: PRESENT: other - Nasogastric tube in place Respiratory exam: PRESENT: clear to auscultation michael, symmetrical, unlabored. ABSENT: rales, rhonchi, wheezes Cardiovascular exam: PRESENT: RRR, +S1, +S2 GI/Abdominal exam: PRESENT: hypoactive bowel sounds, soft, tenderness - At incisions Neurological exam: PRESENT: alert, awake, oriented to person, oriented to place, oriented to time, oriented to situation, CN II-XII grossly intact Psychiatric exam: PRESENT: appropriate affect. ABSENT: agitated, anxious Focused psych exam: ABSENT: delusional, restlessness Results Laboratory Results: 11/27/18 04:55 11/27/18 04:55 11/26/18 11/27/18 11/27/18 21:10 04:55 04:55 WBC 13.9 H RBC 4.42 Hgb 12.4 D Hct 38.0 MCV 86 MCH 28.1 MCHC 32.8 RDW 14.4 H Plt Count 177 Seg Neutrophils % 83.5 H Lymphocytes % 7.9 L Monocytes % 8.3 Eosinophils % 0.0 Basophils % 0.3 Absolute Neutrophils 11.6 H Absolute Lymphocytes 1.1 Absolute Monocytes 1.2 Absolute Eosinophils 0.0 Absolute Basophils 0.0 Sodium 140.9 Potassium 4.5 Chloride 109 H Carbon Dioxide 27 Anion Gap 5 BUN 15 Creatinine 0.66 Est GFR ( Amer) > 60 Est GFR (Non-Af Amer) > 60 Glucose 129 H Lactic Acid 1.4 Calcium 8.0 L Impressions: Abdomen X-Ray 11/26/18 11:36 IMPRESSION: 1. NO RADIOGRAPHIC EVIDENCE FOR ACUTE ABDOMINAL DISEASE. 2. Large calcified uterine fibroid. Abdomen/Pelvis CT 11/26/18 13:51 IMPRESSION: 1. There is some mildly dilated small bowel in a ventral hernia and within the pelvis concerning for closed loop obstruction. 2. Anterolisthesis of L4 on L5. 3. Ascites. KUB X-Ray 11/26/18 20:56 IMPRESSION: On the second submitted image, the enteric tube is likely in the stomach. Other findings, as above copyright 2011 [employer]- All Rights Reserved Assessment & Plan - Diagnosis (1) Hypertension Qualifiers: Hypertension type: other secondary hypertension Qualified Code(s): I15.8 - Other secondary hypertension Is this a current diagnosis for this admission?: Yes Plan: High blood pressures yesterday may have been related to pain. Her blood pressures are better today. As needed medications are available. We will continue to monitor and add scheduled medications if appropriate. (2) Strangulated ventral incisional hernia Is this a current diagnosis for this admission?: Yes Plan: Still with abdominal pain but is 1 day postop. Please see surgical note for details and treatment plan. - Time Time Spent with patient: Less than 15 minutes Medications reviewed and adjusted accordingly: Yes Anticipated discharge: Home
[2018-11-28] MEDS: FAMOTIDINE INJ/PF 20 MG/2 ML SDV IV SCH ×2 (09:15→21:23)
--- NOTE | 2018-11-28 10:09 | PDOC PROGRESS REPORT ---
Subjective Progress Note for:: 11/28/18 Reason For Visit: STRANGULATED VENTRAL HERNIA Physical Exam Vital Signs: Temp Pulse Resp BP Pulse Ox 97.8 F 85 16 137/76 H 100 11/28/18 07:36 11/28/18 07:36 11/28/18 07:36 11/28/18 07:36 11/28/18 07:36 Intake & Output 11/27/18 11/28/18 11/29/18 06:59 06:59 06:59 Intake Total 6850 2050 Output Total 3950 1410 Balance 2900 640 Weight 102.9 kg 107.8 kg Results Laboratory Results: 11/28/18 04:43 11/28/18 04:43 11/28/18 11/28/18 04:43 04:43 WBC 7.4 RBC 3.72 Hgb 10.5 L Hct 32.2 L MCV 87 MCH 28.2 MCHC 32.6 RDW 14.4 H Plt Count 145 L Seg Neutrophils % 70.0 Lymphocytes % 20.3 Monocytes % 8.8 Eosinophils % 0.3 Basophils % 0.6 Absolute Neutrophils 5.2 Absolute Lymphocytes 1.5 Absolute Monocytes 0.7 Absolute Eosinophils 0.0 Absolute Basophils 0.0 Sodium 142.0 Potassium 3.9 Chloride 112 H Carbon Dioxide 24 Anion Gap 6 BUN 13 Creatinine 0.70 Est GFR ( Amer) > 60 Est GFR (Non-Af Amer) > 60 Glucose 86 Calcium 7.9 L Impressions: Abdomen X-Ray 11/26/18 11:36 IMPRESSION: 1. NO RADIOGRAPHIC EVIDENCE FOR ACUTE ABDOMINAL DISEASE. 2. Large calcified uterine fibroid. Abdomen/Pelvis CT 11/26/18 13:51 IMPRESSION: 1. There is some mildly dilated small bowel in a ventral hernia and within the pelvis concerning for closed loop obstruction. 2. Anterolisthesis of L4 on L5. 3. Ascites. KUB X-Ray 11/26/18 20:56 IMPRESSION: On the second submitted image, the enteric tube is likely in the stomach. Other findings, as above copyright 2010 [employer]- All Rights Reserved Assessment & Plan - Diagnosis (1) Strangulated ventral incisional hernia Is this a current diagnosis for this admission?: Yes - Plan Summary Plan Summary: 58 y/o F s/p laparotomy for strangulated ventral hernia. She is feeling better today. NG in-place. No flatus yet. Dressing in-tact. Serosang output from drain. OOB today DVT proph Pulmonary toilet. OK for ice chips and popsicles
--- NOTE | 2018-11-28 13:16 | PDOC PROGRESS REPORT ---
Subjective Progress Note for:: 11/28/18 Subjective:: No adverse events overnight. No new complaints. She still has the NG tube in and is n.p.o. She says she is not passed any flatus yet. Blood pressures have been within the normal range. Reason For Visit: STRANGULATED VENTRAL HERNIA Physical Exam Vital Signs: Temp Pulse Resp BP Pulse Ox 97.8 F 85 16 137/76 H 100 11/28/18 07:36 11/28/18 07:36 11/28/18 07:36 11/28/18 07:36 11/28/18 07:36 Intake & Output 11/27/18 11/28/18 11/29/18 06:59 06:59 06:59 Intake Total 6850 2050 Output Total 3950 1410 Balance 2900 640 Weight 102.9 kg 107.8 kg General appearance: PRESENT: no acute distress, cooperative, disheveled, morbidly obese Respiratory exam: PRESENT: clear to auscultation michael, symmetrical, unlabored. ABSENT: accessory muscle use, crackles, prolonged expiratory phas, rhonchi, tachypnea, wheezes Cardiovascular exam: PRESENT: RRR, +S1, +S2 Pulses: PRESENT: normal carotid pulses Vascular exam: PRESENT: normal capillary refill GI/Abdominal exam: PRESENT: soft, tenderness - Appropriate tenderness, other - NG tube was on suction. ABSENT: distended, guarding, rebound Extremities exam: ABSENT: clubbing, pedal edema Musculoskeletal exam: PRESENT: normal inspection. ABSENT: deformity Neurological exam: PRESENT: alert, awake, oriented to person, oriented to place, oriented to time, oriented to situation Psychiatric exam: PRESENT: appropriate affect, normal mood Skin exam: PRESENT: dry, warm Results Laboratory Results: 11/28/18 04:43 11/28/18 04:43 11/28/18 11/28/18 04:43 04:43 WBC 7.4 RBC 3.72 Hgb 10.5 L Hct 32.2 L MCV 87 MCH 28.2 MCHC 32.6 RDW 14.4 H Plt Count 145 L Seg Neutrophils % 70.0 Lymphocytes % 20.3 Monocytes % 8.8 Eosinophils % 0.3 Basophils % 0.6 Absolute Neutrophils 5.2 Absolute Lymphocytes 1.5 Absolute Monocytes 0.7 Absolute Eosinophils 0.0 Absolute Basophils 0.0 Sodium 142.0 Potassium 3.9 Chloride 112 H Carbon Dioxide 24 Anion Gap 6 BUN 13 Creatinine 0.70 Est GFR ( Amer) > 60 Est GFR (Non-Af Amer) > 60 Glucose 86 Calcium 7.9 L Impressions: Abdomen X-Ray 11/26/18 11:36 IMPRESSION: 1. NO RADIOGRAPHIC EVIDENCE FOR ACUTE ABDOMINAL DISEASE. 2. Large calcified uterine fibroid. Abdomen/Pelvis CT 11/26/18 13:51 IMPRESSION: 1. There is some mildly dilated small bowel in a ventral hernia and within the pelvis concerning for closed loop obstruction. 2. Anterolisthesis of L4 on L5. 3. Ascites. KUB X-Ray 11/26/18 20:56 IMPRESSION: On the second submitted image, the enteric tube is likely in the stomach. Other findings, as above copyright 2011 [employer]- All Rights Reserved Assessment & Plan - Diagnosis (1) Hypertension Qualifiers: Hypertension type: other secondary hypertension Qualified Code(s): I15.8 - Other secondary hypertension Is this a current diagnosis for this admission?: Yes Plan: Is on as needed medications for now. Blood pressure remains in the normal range. We will monitor her as she is transition to oral intake regarding whether or not she will need anything by mouth to control her blood pressure. - Time Time Spent with patient: 15-24 minutes
[2018-11-28] MEDS: HEPARIN SOD (PORCINE) 5,000 UNIT/ML 1 ML SYRINGE SUBCUT SCH ×2 (14:00→21:24)
[2018-11-28] MEDS: MORPHINE SULFATE 10 MG/ML INJ IV PRN (17:38)
[2018-11-28] MEDS ORDERED: PHENOL/SODIUM PHENOLATE 100 SPRAY/177 ML BOTTLE PO PRN (19:46)
[2018-11-29] MEDS: NORMAL SALINE 1000 ML 1,000 ML IV PRN ×2 (00:30→10:52)
[2018-11-29] MEDS: ACETAMINOPHEN 1,000 MG/100 ML RTUPB IV SCH ×4 (02:26→23:03)
[2018-11-29] MEDS: PIPERACILLIN SODIUM/TAZOBACTAM 3.375 GM in NORMAL SALINE 100 ML IV SCH ×2 (02:59→10:50)
[2018-11-29 04:55] LABS: ABSOLUTE EOSINOPHILS # (AUTO) 0.1 10^3/uL (0.0-0.6); ABSOLUTE LYMPHOCYTES (AUTO) 1.5 10^3/uL (0.5-4.7); ABSOLUTE MONOCYTES (AUTO) 0.5 10^3/uL (0.1-1.4); ABSOLUTE NEUT (AUTO) 4.4 10^3/uL (1.7-8.2); BASOPHILS % (AUTO) 0.6 % (0-2); EOSINOPHILS % (AUTO) 1.6 % (0-6); HEMATOCRIT 29.4 % (36.0-47.0); HEMOGLOBIN 9.7 g/dL (12.0-15.5); LYMPHOCYTES % (AUTO) 22.7 % (13-45); MEAN CORPUSCULAR HEMOGLOBIN 28.5 pg (27.0-33.4); MEAN CORPUSCULAR HGB CONC 32.9 g/dL (32.0-36.0); MEAN CORPUSCULAR VOLUME 87 fl (80-97); MONOCYTES % (AUTO) 7.2 % (3-13); PLATELET COUNT 144 10^3/uL (150-450); RED BLOOD COUNT 3.39 10^6/uL (3.72-5.28); RED CELL DISTRIBUTION WIDTH 14.2 % (11.5-14.0); SEGMENTED NEUTROPHILS % (AUTO) 67.9 % (42-78); TOTAL CELLS COUNTED % (AUTO) 100 %; WHITE BLOOD COUNT 6.5 10^3/uL (4.0-10.5)
[2018-11-29 05:10] LABS: ANION GAP 8 (5-19); BLOOD UREA NITROGEN 10 mg/dL (7-20); CALCIUM 7.8 mg/dL (8.4-10.2); CARBON DIOXIDE 22 mmol/L (22-30); CHLORIDE 112 mmol/L (98-107); GLUCOSE 75 mg/dL (75-110); POTASSIUM 3.5 mmol/L (3.6-5.0); SODIUM 141.9 mmol/L (137-145)
[2018-11-29] MEDS: CEFOXITIN 1 GM/D5W RTU 1 GM/50 ML RTUPB IV SCH ×2 (07:07→18:32)
[2018-11-29] MEDS ORDERED: DEXTROSE 40% GEL 15 GM TUBE PO PRN ×2 (08:32)
[2018-11-29] MEDS ORDERED: GLUCAGON,HUMAN RECOMB 1 MG INJ IM PRN (08:32)
[2018-11-29] MEDS ORDERED: DEXTROSE 50%-WATER 25 GM/50 ML DISP.SYRIN IV PRN (08:32)
--- NOTE | 2018-11-29 08:32 | PDOC PROGRESS REPORT ---
Subjective Progress Note for:: 11/29/18 Subjective:: 11/29/2018 58-year-old for a male admitted for strangulated ventral hernia status post laparotomy. Medical consult was called for management of the blood pressure. Blood pressure today is 130/66. Patient still have NG tube. She is taking ice chips. No complaints from the patient. Except for soreness in the abdomen. The wound cultures came back positive for gram-positive cocci, patient she is on Zosyn on cefotaxime. Patient is afebrile. No acute events in the last 24 hours. Reason For Visit: STRANGULATED VENTRAL HERNIA Physical Exam Vital Signs: Temp Pulse Resp BP Pulse Ox 99.4 F 68 15 142/81 H 97 11/29/18 07:48 11/29/18 07:48 11/29/18 07:48 11/29/18 07:48 11/29/18 07:48 Intake & Output 11/28/18 11/29/18 11/30/18 06:59 06:59 06:59 Intake Total 2050 2750 50 Output Total 1410 910 Balance 640 1840 50 Weight 107.8 kg 109.3 kg General appearance: PRESENT: mild distress Head exam: PRESENT: atraumatic Eye exam: PRESENT: PERRLA Mouth exam: PRESENT: dry mucosa Neck exam: ABSENT: carotid bruit, JVD, lymphadenopathy, thyromegaly Respiratory exam: PRESENT: clear to auscultation michael. ABSENT: rales, rhonchi, wheezes Cardiovascular exam: PRESENT: RRR. ABSENT: diastolic murmur, rubs, systolic murmur GI/Abdominal exam: PRESENT: other - Abdomen was soft tenderness especially on the right side of the abdomen on gentle palpation. Bowel sounds are sluggish. Drain is in place draining serous material. Extremities exam: PRESENT: full ROM. ABSENT: calf tenderness, clubbing, pedal edema Neurological exam: PRESENT: alert, awake, oriented to person, oriented to place, oriented to time, oriented to situation, CN II-XII grossly intact. ABSENT: motor sensory deficit Psychiatric exam: PRESENT: appropriate affect, normal mood. ABSENT: homicidal ideation, suicidal ideation Results Laboratory Results: 11/29/18 04:30 11/29/18 04:30 11/29/18 11/29/18 04:30 04:30 WBC 6.5 RBC 3.39 L Hgb 9.7 L Hct 29.4 L MCV 87 MCH 28.5 MCHC 32.9 RDW 14.2 H Plt Count 144 L Seg Neutrophils % 67.9 Lymphocytes % 22.7 Monocytes % 7.2 Eosinophils % 1.6 Basophils % 0.6 Absolute Neutrophils 4.4 Absolute Lymphocytes 1.5 Absolute Monocytes 0.5 Absolute Eosinophils 0.1 Absolute Basophils 0.0 Sodium 141.9 Potassium 3.5 L Chloride 112 H Carbon Dioxide 22 Anion Gap 8 BUN 10 Creatinine 0.62 Est GFR ( Amer) > 60 Est GFR (Non-Af Amer) > 60 Glucose 75 Calcium 7.8 L Impressions: Abdomen X-Ray 11/26/18 11:36 IMPRESSION: 1. NO RADIOGRAPHIC EVIDENCE FOR ACUTE ABDOMINAL DISEASE. 2. Large calcified uterine fibroid. Abdomen/Pelvis CT 11/26/18 13:51 IMPRESSION: 1. There is some mildly dilated small bowel in a ventral hernia and within the pelvis concerning for closed loop obstruction. 2. Anterolisthesis of L4 on L5. 3. Ascites. KUB X-Ray 11/26/18 20:56 IMPRESSION: On the second submitted image, the enteric tube is likely in the stomach. Other findings, as above copyright 2010 [employer]- All Rights Reserved Assessment & Plan - Diagnosis (1) Hypertension Qualifiers: Hypertension type: other secondary hypertension Qualified Code(s): I15.8 - Other secondary hypertension Is this a current diagnosis for this admission?: Yes Plan: 11/29/2018-patient blood pressure today is 130/66 well-controlled. Patient is on hydralazine 10 mg IV every 6 as needed for blood pressure management. Going to start on lisinopril 10 mg p.o. daily from today. She is given the history of hypertension but if she is not any antihypertensive medications at home. (2) Strangulated ventral incisional hernia Is this a current diagnosis for this admission?: Yes Plan: 11/29/2018-patient underwent surgery for strangulated ventral hernia. Wound cultures came back positive for gram-positive cocci in clusters. Patient is presently on cefotoxin and Zosyn. Plan is to continue the present management. (3) Diabetes Is this a current diagnosis for this admission?: Yes Plan: 11/29/2018-patient has history of diabetes mellitus we going to check her blood sugars before meals and at bedtime plan to check a hemoglobin A1c. Latest blood sugar is 75 but patient is n.p.o. - Time Time Spent with patient: 15-24 minutes Medications reviewed and adjusted accordingly: Yes Anticipated discharge: Home
[2018-11-29] MEDS ORDERED: LISINOPRIL 10 MG TABLET PO SCH (10:00)
[2018-11-29] MEDS: FAMOTIDINE INJ/PF 20 MG/2 ML SDV IV SCH ×2 (10:50→23:03)
[2018-11-29] MEDS: HEPARIN SOD (PORCINE) 5,000 UNIT/ML 1 ML SYRINGE SUBCUT SCH ×2 (10:50→23:03)
[2018-11-29] MEDS ORDERED: POTASSI CL 20 MEQ/50 ML RIDER 20 MEQ/50 ML RTUPB IV SCH (11:36)
--- NOTE | 2018-11-29 11:41 | PDOC PROGRESS REPORT ---
Subjective Progress Note for:: 11/29/18 Subjective:: Patient denies flatus; states pain controlled. Has been out of bed once or twice Reason For Visit: STRANGULATED VENTRAL HERNIA Physical Exam Vital Signs: Temp Pulse Resp BP Pulse Ox 99.4 F 68 15 142/81 H 97 11/29/18 07:48 11/29/18 07:48 11/29/18 07:48 11/29/18 07:48 11/29/18 07:48 Intake & Output 11/28/18 11/29/18 11/30/18 06:59 06:59 06:59 Intake Total 2050 2750 1150 Output Total 1410 910 Balance 640 1840 1150 Weight 107.8 kg 109.3 kg General appearance: PRESENT: no acute distress, other GI/Abdominal exam: PRESENT: other - Abdomen soft, nontender. Jorgito in place; abdomen not distended. Results Laboratory Results: 11/29/18 04:30 11/29/18 04:30 11/29/18 11/29/18 04:30 04:30 WBC 6.5 RBC 3.39 L Hgb 9.7 L Hct 29.4 L MCV 87 MCH 28.5 MCHC 32.9 RDW 14.2 H Plt Count 144 L Seg Neutrophils % 67.9 Lymphocytes % 22.7 Monocytes % 7.2 Eosinophils % 1.6 Basophils % 0.6 Absolute Neutrophils 4.4 Absolute Lymphocytes 1.5 Absolute Monocytes 0.5 Absolute Eosinophils 0.1 Absolute Basophils 0.0 Sodium 141.9 Potassium 3.5 L Chloride 112 H Carbon Dioxide 22 Anion Gap 8 BUN 10 Creatinine 0.62 Est GFR ( Amer) > 60 Est GFR (Non-Af Amer) > 60 Glucose 75 Calcium 7.8 L Impressions: Abdomen X-Ray 11/26/18 11:36 IMPRESSION: 1. NO RADIOGRAPHIC EVIDENCE FOR ACUTE ABDOMINAL DISEASE. 2. Large calcified uterine fibroid. Abdomen/Pelvis CT 11/26/18 13:51 IMPRESSION: 1. There is some mildly dilated small bowel in a ventral hernia a nd within the pelvis concerning for closed loop obstruction. 2. Anterolisthesis of L4 on L5. 3. Ascites. KUB X-Ray 11/26/18 20:56 IMPRESSION: On the second submitted image, the enteric tube is likely in the stomach. Other findings, as above copyright 2011 [employer]- All Rights Reserved Assessment & Plan - Diagnosis (1) Strangulated ventral incisional hernia Is this a current diagnosis for this admission?: Yes Plan: Impression: Patient is postoperative day 3 status post exploratory laparotomy, reduction of incarcerated hernia with ischemic small bowel status post resection, postop ileus; no complications at this time Recommendations: 1. We will clamp NG tube; remove NG tube if patient tolerates 2. Fung catheter removal today. 3. Increase ambulation 4. We will leave drain in place.
[2018-11-29] MEDS: INSULIN LISPRO 100 UNIT/ML 3 ML VIAL SUBCUT SCH ×2 (12:53→18:20)
[2018-11-29] MEDS: POTASSIUM CHLORIDE 20 MEQ/50 ML RTU IV SCH ×2 (13:37→17:19)
[2018-11-29] MEDS: DEXTROSE 50%-WATER 25 GM/50 ML DISP.SYRIN IV PRN (16:51)
[2018-11-30] MEDS: DEXTROSE 50%-WATER 25 GM/50 ML DISP.SYRIN IV PRN ×2 (00:18→05:54)
[2018-11-30] MEDS: INSULIN LISPRO 100 UNIT/ML 3 ML VIAL SUBCUT SCH ×4 (00:32→17:07)
[2018-11-30] MEDS ORDERED: POTASSI CL 20 MEQ/50 ML RIDER 20 MEQ/50 ML RTUPB IV SCH (03:00)
[2018-11-30] MEDS ORDERED: POTASSI CL 20 MEQ/50 ML RIDER 20 MEQ/50 ML RTUPB IV ONE (03:30)
[2018-11-30] MEDS: POTASSIUM CHLORIDE 20 MEQ/50 ML RTU IV SCH (03:35)
[2018-11-30] MEDS: ACETAMINOPHEN 1,000 MG/100 ML RTUPB IV SCH (03:43)
[2018-11-30 05:03] LABS: ABSOLUTE EOSINOPHILS # (AUTO) 0.2 10^3/uL (0.0-0.6); ABSOLUTE LYMPHOCYTES (AUTO) 1.4 10^3/uL (0.5-4.7); ABSOLUTE MONOCYTES (AUTO) 0.4 10^3/uL (0.1-1.4); BASOPHILS % (AUTO) 0.7 % (0-2); EOSINOPHILS % (AUTO) 4.3 % (0-6); HEMATOCRIT 27.5 % (36.0-47.0); HEMOGLOBIN 9.2 g/dL (12.0-15.5); LYMPHOCYTES % (AUTO) 27.9 % (13-45); MEAN CORPUSCULAR HEMOGLOBIN 28.8 pg (27.0-33.4); MEAN CORPUSCULAR HGB CONC 33.3 g/dL (32.0-36.0); MEAN CORPUSCULAR VOLUME 86 fl (80-97); MONOCYTES % (AUTO) 7.8 % (3-13); PLATELET COUNT 165 10^3/uL (150-450); RED BLOOD COUNT 3.19 10^6/uL (3.72-5.28); RED CELL DISTRIBUTION WIDTH 14.3 % (11.5-14.0); SEGMENTED NEUTROPHILS % (AUTO) 59.3 % (42-78); TOTAL CELLS COUNTED % (AUTO) 100 %; WHITE BLOOD COUNT 5.1 10^3/uL (4.0-10.5)
[2018-11-30 05:25] LABS: BLOOD UREA NITROGEN 9 mg/dL (7-20); CALCIUM 7.9 mg/dL (8.4-10.2); POTASSIUM 3.7 mmol/L (3.6-5.0)
[2018-11-30 05:26] LABS: ALANINE AMINOTRANSFERASE 16 U/L (9-52); ALBUMIN 2.6 g/dL (3.5-5.0); ALKALINE PHOSPHATASE 55 U/L (38-126); ASPARTATE AMINO TRANSFERASE 15 U/L (14-36); BILIRUBIN,DIRECT 0.2 mg/dL (0.0-0.4); BILIRUBIN,TOTAL 0.7 mg/dL (0.2-1.3)
[2018-11-30] MEDS: CEFOXITIN 1 GM/D5W RTU 1 GM/50 ML RTUPB IV SCH ×2 (05:27→17:20)
[2018-11-30 05:30] LABS: CARBON DIOXIDE 25 mmol/L (22-30); CHLORIDE 114 mmol/L (98-107); SODIUM 142.3 mmol/L (137-145)
[2018-11-30 05:32] LABS: GLUCOSE 69 mg/dL (75-110)
[2018-11-30 05:40] LABS: ANION GAP 3 (5-19)
--- NOTE | 2018-11-30 09:00 | PDOC PROGRESS REPORT ---
Subjective Progress Note for:: 11/30/18 Reason For Visit: STRANGULATED VENTRAL HERNIA Physical Exam Vital Signs: Temp Pulse Resp BP Pulse Ox 98.6 F 68 18 121/69 100 11/30/18 03:33 11/30/18 07:00 11/30/18 03:33 11/30/18 03:33 11/30/18 03:33 Intake & Output 11/29/18 11/30/18 12/01/18 06:59 06:59 06:59 Intake Total 2750 3100 Output Total 910 1585 Balance 1840 1515 Weight 109.3 kg 109.3 kg General appearance: PRESENT: no acute distress, cooperative Eye exam: PRESENT: conjunctiva pink Respiratory exam: PRESENT: clear to auscultation michael Cardiovascular exam: PRESENT: RRR Pulses: PRESENT: normal radial pulses, normal femoral pulses GI/Abdominal exam: PRESENT: soft - wound dry with retentions Extremities exam: PRESENT: full ROM Neurological exam: PRESENT: alert, awake, oriented to person, oriented to place Results Laboratory Results: 11/30/18 04:22 11/30/18 04:22 11/30/18 11/30/18 04:22 04:22 WBC 5.1 RBC 3.19 L Hgb 9.2 L Hct 27.5 L MCV 86 MCH 28.8 MCHC 33.3 RDW 14.3 H Plt Count 165 Seg Neutrophils % 59.3 Lymphocytes % 27.9 Monocytes % 7.8 Eosinophils % 4.3 Basophils % 0.7 Absolute Neutrophils 3.0 Absolute Lymphocytes 1.4 Absolute Monocytes 0.4 Absolute Eosinophils 0.2 Absolute Basophils 0.0 Sodium 142.3 Potassium 3.7 Chloride 114 H Carbon Dioxide 25 Anion Gap 3 L BUN 9 Creatinine 0.59 Est GFR ( Amer) > 60 Est GFR (Non-Af Amer) > 60 Glucose 69 L Calcium 7.9 L Magnesium 2.0 Total Bilirubin 0.7 AST 15 ALT 16 Alkaline Phosphatase 55 Total Protein 5.0 L Albumin 2.6 L Impressions: Abdomen X-Ray 11/26/18 11:36 IMPRESSION: 1. NO RADIOGRAPHIC EVIDENCE FOR ACUTE ABDOMINAL DISEASE. 2. Large calcified uterine fibroid. Abdomen/Pelvis CT 11/26/18 13:51 IMPRESSION: 1. There is some mildly dilated small bowel in a ventral hernia and within the pelvis concerning for closed loop obstruction. 2. Anterolisthesis of L4 on L5. 3. Ascites. KUB X-Ray 11/26/18 20:56 IMPRESSION: On the second submitted image, the enteric tube is likely in the stomach. Other findings, as above copyright 2011 [email or web address]- All Rights Reserved Assessment & Plan - Plan Summary Plan Summary: feels well had bm last night min pain wound clean dry will start clears today
[2018-11-30] MEDS: HEPARIN SOD (PORCINE) 5,000 UNIT/ML 1 ML SYRINGE SUBCUT SCH ×2 (09:52→22:00)
[2018-11-30] MEDS: FAMOTIDINE INJ/PF 20 MG/2 ML SDV IV SCH ×2 (09:54→22:31)
[2018-11-30] MEDS: AMLODIPINE BESYLATE 10 MG TABLET PO SCH (09:54)
[2018-11-30] MEDS: NORMAL SALINE 1000 ML 1,000 ML IV PRN (16:03)
[2018-11-30] MEDS: MORPHINE SULFATE 10 MG/ML INJ IV PRN (22:40)
[2018-12-01] MEDS: INSULIN LISPRO 100 UNIT/ML 3 ML VIAL SUBCUT SCH ×5 (02:06→22:08)
[2018-12-01] MEDS: MORPHINE SULFATE 10 MG/ML INJ IV PRN ×2 (04:17→22:10)
[2018-12-01 05:09] LABS: ABSOLUTE BASOPHILS # (AUTO) 0.1 10^3/uL (0.0-0.2); ABSOLUTE EOSINOPHILS # (AUTO) 0.3 10^3/uL (0.0-0.6); ABSOLUTE LYMPHOCYTES (AUTO) 1.2 10^3/uL (0.5-4.7); ABSOLUTE MONOCYTES (AUTO) 0.6 10^3/uL (0.1-1.4); ABSOLUTE NEUT (AUTO) 3.1 10^3/uL (1.7-8.2); BASOPHILS % (AUTO) 1.1 % (0-2); EOSINOPHILS % (AUTO) 6.4 % (0-6); HEMATOCRIT 28.9 % (36.0-47.0); HEMOGLOBIN 9.7 g/dL (12.0-15.5); MEAN CORPUSCULAR HEMOGLOBIN 28.6 pg (27.0-33.4); MEAN CORPUSCULAR HGB CONC 33.4 g/dL (32.0-36.0); MEAN CORPUSCULAR VOLUME 86 fl (80-97); MONOCYTES % (AUTO) 11.2 % (3-13); PLATELET COUNT 193 10^3/uL (150-450); RED BLOOD COUNT 3.38 10^6/uL (3.72-5.28); RED CELL DISTRIBUTION WIDTH 14.3 % (11.5-14.0); SEGMENTED NEUTROPHILS % (AUTO) 58.3 % (42-78); TOTAL CELLS COUNTED % (AUTO) 100 %; WHITE BLOOD COUNT 5.2 10^3/uL (4.0-10.5)
[2018-12-01 05:29] LABS: ALANINE AMINOTRANSFERASE 15 U/L (9-52); ALBUMIN 2.6 g/dL (3.5-5.0); ALKALINE PHOSPHATASE 55 U/L (38-126); ANION GAP 6 (5-19); ASPARTATE AMINO TRANSFERASE 17 U/L (14-36); BILIRUBIN,DIRECT 0.2 mg/dL (0.0-0.4); BILIRUBIN,TOTAL 0.6 mg/dL (0.2-1.3); BLOOD UREA NITROGEN 6 mg/dL (7-20); CALCIUM 8.1 mg/dL (8.4-10.2); CARBON DIOXIDE 26 mmol/L (22-30); CHLORIDE 111 mmol/L (98-107); GLUCOSE 90 mg/dL (75-110); POTASSIUM 3.8 mmol/L (3.6-5.0); SODIUM 142.7 mmol/L (137-145); TOTAL PROTEIN 5.3 g/dL (6.3-8.2)
[2018-12-01] MEDS: CEFOXITIN 1 GM/D5W RTU 1 GM/50 ML RTUPB IV SCH (05:39)
[2018-12-01] MEDS: NORMAL SALINE 1000 ML 1,000 ML IV PRN (08:22)
[2018-12-01] MEDS ORDERED: DEXTROSE 40% GEL 15 GM TUBE PO PRN ×2 (08:49)
[2018-12-01] MEDS ORDERED: DEXTROSE 50%-WATER 25 GM/50 ML DISP.SYRIN IV PRN ×2 (08:49)
[2018-12-01] MEDS ORDERED: GLUCAGON,HUMAN RECOMB 1 MG INJ IM PRN (08:49)
--- NOTE | 2018-12-01 08:50 | PDOC PROGRESS REPORT ---
Subjective Progress Note for:: 12/01/18 Subjective:: 11/29/2018 58-year-old for a male admitted for strangulated ventral hernia status post laparotomy. Medical consult was called for management of the blood pressure. Blood pressure today is 130/66. Patient still have NG tube. She is taking ice chips. No complaints from the patient. Except for soreness in the abdomen. The wound cultures came back positive for gram-positive cocci, patient she is on Zosyn on cefotaxime. Patient is afebrile. No acute events in the last 24 hours. 11/30/2018-no acute events in the last 24 hours. Patient is afebrile. NG tube was out. Patient had a good bowel movement yesterday. Surgical drain still in place. The wound culture positive for staph aureus. Patient is presently on IV cefoxitin. No complaints from the patient. She said she is to take glyburide at home for diabetes mellitus and hydrochlorothiazide for hypertension at home. hemo Globin A1c came back 6. 12/01/2018-no acute events in the last 24 hours. Patient is afebrile. Able to tolerate the clear liquids. Had a good bowel movement yesterday. Complains of less pain today. Blood pressure today is 151/89. Reason For Visit: STRANGULATED VENTRAL HERNIA Physical Exam Vital Signs: Temp Pulse Resp BP Pulse Ox 98.7 F 69 18 151/89 H 99 12/01/18 03:58 12/01/18 07:00 12/01/18 03:58 12/01/18 03:58 12/01/18 03:58 Intake & Output 11/30/18 12/01/18 12/02/18 06:59 06:59 06:59 Intake Total 3100 2287 1000 Output Total 1585 3625 20 Balance 1515 -1338 980 Weight 109.3 kg 108.3 kg General appearance: PRESENT: no acute distress Head exam: PRESENT: atraumatic Eye exam: PRESENT: PERRLA Mouth exam: PRESENT: moist, tongue midline Neck exam: ABSENT: carotid bruit, JVD, lymphadenopathy, thyromegaly Respiratory exam: PRESENT: clear to auscultation michael. ABSENT: rales, rhonchi, wheezes Cardiovascular exam: PRESENT: RRR. ABSENT: diastolic murmur, rubs, systolic murmur GI/Abdominal exam: PRESENT: other - Abdomen soft nontender bowel sounds are present. Still have a surgical drain present. Jorgito are present in the midli ne. Extremities exam: PRESENT: full ROM. ABSENT: calf tenderness, clubbing, pedal edema Neurological exam: PRESENT: alert, awake, oriented to person, oriented to place, oriented to time, oriented to situation, CN II-XII grossly intact. ABSENT: shane r sensory deficit Psychiatric exam: PRESENT: appropriate affect, normal mood. ABSENT: homicidal ideation, suicidal ideation Results Laboratory Results: 12/01/18 04:54 12/01/18 04:54 12/01/18 12/01/18 12/01/18 04:54 04:54 04:54 WBC 5.2 RBC 3.38 L Hgb 9.7 L Hct 28.9 L MCV 86 MCH 28.6 MCHC 33.4 RDW 14.3 H Plt Count 193 Seg Neutrophils % 58.3 Lymphocytes % 23.0 Monocytes % 11.2 Eosinophils % 6.4 H Basophils % 1.1 Absolute Neutrophils 3.1 Absolute Lymphocytes 1.2 Absolute Monocytes 0.6 Absolute Eosinophils 0.3 Absolute Basophils 0.1 Sodium 142.7 Potassium 3.8 Chloride 111 H Carbon Dioxide 26 Anion Gap 6 BUN 6 L Creatinine 0.61 Est GFR ( Amer) > 60 Est GFR (Non-Af Amer) > 60 Glucose 90 Calcium 8.1 L Magnesium 1.8 Total Bilirubin 0.6 AST 17 ALT 15 Alkaline Phosphatase 55 Total Protein 5.3 L Albumin 2.6 L 11/26/18 18:45 Hernia Gram Stain - Final 11/26/18 18:45 Hernia Wound Culture - Final Staphylococcus Aureus Streptococcus Mitis Klebsiella Oxytoca Clostridium Sp.not Perfringens Impressions: Abdomen X-Ray 11/26/18 11:36 IMPRESSION: 1. NO RADIOGRAPHIC EVIDENCE FOR ACUTE ABDOMINAL DISEASE. 2. Large calcified uterine fibroid. Abdomen/Pelvis CT 11/26/18 13:51 IMPRESSION: 1. There is some mildly dilated small bowel in a ventral hernia and within the pelvis concerning for closed loop obstruction. 2. Anterolisthesis of L4 on L5. 3. Ascites. KUB X-Ray 11/26/18 20:56 IMPRESSION: On the second submitted image, the enteric tube is likely in the stomach. Other findings, as above copyright 2010 [employer]- All Rights Reserved Assessment & Plan - Diagnosis (1) Strangulated ventral incisional hernia Is this a current diagnosis for this admission?: Yes Plan: 11/29/2018-patient underwent surgery for strangulated ventral hernia. Wound cultures came back positive for gram-positive cocci in clusters. Patient is presently on cefotoxin and Zosyn. Plan is to continue the present management. 11/30/2018-patient was admitted for strangulated ventral hernia status post laparotomy. Wound cultures are positive for staph aureus patient is presently on cefoxitin. Patient is afebrile T-max is 98.6. Patient have a good bowel movement yesterday NG tube was removed yesterday. Presently she is on ice chips. Surgical drain still in place. 12/01/2018-patient was admitted for strangulated ventral hernia status post laparotomy. Still have the surgical drain, had a good bowel movement yesterday. Able to tolerate the clear liquids. Pain scale according to the patient 2-3 x 10. Presently on a cefoxitin. Wound cultures came back positive for staph [place] re[place]. She is afebrile for the last several days. (2) Hypertension Qualifiers: Hypertension type: other secondary hypertension Qualified Code(s): I15.8 - Other secondary hypertension Is this a current diagnosis for this admission?: Yes Plan: 11/29/2018-patient blood pressure today is 130/66 well-controlled. Patient is on hydralazine 10 mg IV every 6 as needed for blood pressure management. Going to start on lisinopril 10 mg p.o. daily from today. She is given the history of hypertension but if she is not any antihypertensive medications at home. 11/30/2018-patient blood pressure today is 129/69. She was started on lisinopril yesterday but it was changed to amlodipine because patient is allergic to lisinopril. Presently she is on amlodipine 10 mg p.o. daily. 12/01/2018-patient blood pressure today is 151/89. On amlodipine 10 mg p.o. daily. Patient is needing IV fluids so IV fluids are discontinued from today. Plan to check the blood pressures every shift. (3) Diabetes Is this a current diagnosis for this admission?: Yes Plan: 11/29/2018-patient has history of diabetes mellitus we going to check her blood sugars before meals and at bedtime plan to check a hemoglobin A1c. Latest blood sugar is 75 but patient is n.p.o. 11/30/2018-patient is given the history of diabetes mellitus on glipizide at home. Hemoglobin A1c 6.0 latest blood sugar is 109 well controlled. Dietary consult is going to be requested for diabetic education. 2018-patient history of type 2 diabetes mellitus, on glipizide at home. Here in the hospital she is on insulin sliding scale before meals and at bedtime the blood sugar is 99 this morning. Plan is to continue the present management. (4) Obesity (BMI 30-39.9) Is this a current diagnosis for this admission?: Yes Plan: 11/30/2018-patient BMI is more than 30 diet exercise weight loss was advised. Dietary consult was requested. 12/01/2018-again today diet exercise and lifestyle modifications are discussed with the patient. - Time Time Spent with patient: 15-24 minutes Medications reviewed and adjusted accordingly: Yes Anticipated discharge: Home
[2018-12-01] MEDS: HEPARIN SOD (PORCINE) 5,000 UNIT/ML 1 ML SYRINGE SUBCUT SCH ×2 (09:17→22:08)
[2018-12-01] MEDS: AMLODIPINE BESYLATE 10 MG TABLET PO SCH (09:18)
[2018-12-01] MEDS: FAMOTIDINE INJ/PF 20 MG/2 ML SDV IV SCH ×2 (09:18→22:10)
--- NOTE | 2018-12-01 11:09 | PDOC PROGRESS REPORT ---
Subjective Progress Note for:: 12/01/18 Reason For Visit: STRANGULATED VENTRAL HERNIA Physical Exam Vital Signs: Temp Pulse Resp BP Pulse Ox 98.7 F 69 18 151/89 H 99 12/01/18 03:58 12/01/18 07:00 12/01/18 03:58 12/01/18 03:58 12/01/18 03:58 Intake & Output 11/30/18 12/01/18 12/02/18 06:59 06:59 06:59 Intake Total 3100 2287 1000 Output Total 1585 3625 20 Balance 1515 -1338 980 Weight 109.3 kg 108.3 kg Results Laboratory Results: 12/01/18 04:54 12/01/18 04:54 12/01/18 12/01/18 12/01/18 04:54 04:54 04:54 WBC 5.2 RBC 3.38 L Hgb 9.7 L Hct 28.9 L MCV 86 MCH 28.6 MCHC 33.4 RDW 14.3 H Plt Count 193 Seg Neutrophils % 58.3 Lymphocytes % 23.0 Monocytes % 11.2 Eosinophils % 6.4 H Basophils % 1.1 Absolute Neutrophils 3.1 Absolute Lymphocytes 1.2 Absolute Monocytes 0.6 Absolute Eosinophils 0.3 Absolute Basophils 0.1 Sodium 142.7 Potassium 3.8 Chloride 111 H Carbon Dioxide 26 Anion Gap 6 BUN 6 L Creatinine 0.61 Est GFR ( Amer) > 60 Est GFR (Non-Af Amer) > 60 Glucose 90 Calcium 8.1 L Magnesium 1.8 Total Bilirubin 0.6 AST 17 ALT 15 Alkaline Phosphatase 55 Total Protein 5.3 L Albumin 2.6 L 11/26/18 18:45 Hernia Gram Stain - Final 11/26/18 18:45 Hernia Wound Culture - Final Staphylococcus Aureus Streptococcus Mitis Klebsiella Oxytoca Clostridium Sp.not Perfringens Impressions: Abdomen X-Ray 11/26/18 11:36 IMPRESSION: 1. NO RADIOGRAPHIC EVIDENCE FOR ACUTE ABDOMINAL DISEASE. 2. Large calcified uterine fibroid. Abdomen/Pelvis CT 11/26/18 13:51 IMPRESSION: 1. There is some mildly dilated small bowel in a ventral hernia and within the pelvis concerning for closed loop obstruction. 2. Anterolisthesis of L4 on L5. 3. Ascites. KUB X-Ray 11/26/18 20:56 IMPRESSION: On the second submitted image, the enteric tube is likely in the stomach. Other findings, as above copyright 2011 [employer]- All Rights Reserved Assessment & Plan - Diagnosis (1) Strangulated ventral incisional hernia Is this a current diagnosis for this admission?: Yes - Plan Summary Plan Summary: 58 y/o F s/p laparotomy for strangulated ventral hernia. She is feeling better today. NG was removed. She is having BM's. She is tolerating liquids. Incision is clean, dry, intact. Serosang output from drain. OOB today Continue DVT proph Pulmonary toilet. Remove retention sutures. Leave drain in place. Advance diet.
[2018-12-02 05:24] LABS: ABSOLUTE EOSINOPHILS # (AUTO) 0.2 10^3/uL (0.0-0.6); ABSOLUTE LYMPHOCYTES (AUTO) 1.3 10^3/uL (0.5-4.7); ABSOLUTE MONOCYTES (AUTO) 0.5 10^3/uL (0.1-1.4); ABSOLUTE NEUT (AUTO) 2.5 10^3/uL (1.7-8.2); BASOPHILS % (AUTO) 0.3 % (0-2); EOSINOPHILS % (AUTO) 5.1 % (0-6); HEMATOCRIT 30.1 % (36.0-47.0); HEMOGLOBIN 10.1 g/dL (12.0-15.5); LYMPHOCYTES % (AUTO) 27.9 % (13-45); MEAN CORPUSCULAR HEMOGLOBIN 28.6 pg (27.0-33.4); MEAN CORPUSCULAR HGB CONC 33.5 g/dL (32.0-36.0); MEAN CORPUSCULAR VOLUME 85 fl (80-97); PLATELET COUNT 228 10^3/uL (150-450); RED BLOOD COUNT 3.52 10^6/uL (3.72-5.28); RED CELL DISTRIBUTION WIDTH 14.3 % (11.5-14.0); SEGMENTED NEUTROPHILS % (AUTO) 55.7 % (42-78); TOTAL CELLS COUNTED % (AUTO) 100 %; WHITE BLOOD COUNT 4.5 10^3/uL (4.0-10.5)
[2018-12-02 05:46] LABS: ANION GAP 9 (5-19); BLOOD UREA NITROGEN 6 mg/dL (7-20); CALCIUM 8.4 mg/dL (8.4-10.2); CARBON DIOXIDE 26 mmol/L (22-30); CHLORIDE 107 mmol/L (98-107); GLUCOSE 97 mg/dL (75-110); POTASSIUM 3.6 mmol/L (3.6-5.0); SODIUM 141.7 mmol/L (137-145)
[2018-12-02] MEDS: INSULIN LISPRO 100 UNIT/ML 3 ML VIAL SUBCUT SCH (08:11)
--- NOTE | 2018-12-02 08:51 | PDOC PROGRESS REPORT ---
Subjective Progress Note for:: 12/02/18 Subjective:: 11/29/2018 58-year-old for a male admitted for strangulated ventral hernia status post laparotomy. Medical consult was called for management of the blood pressure. Blood pressure today is 130/66. Patient still have NG tube. She is taking ice chips. No complaints from the patient. Except for soreness in the abdomen. The wound cultures came back positive for gram-positive cocci, patient she is on Zosyn on cefotaxime. Patient is afebrile. No acute events in the last 24 hours. 11/30/2018-no acute events in the last 24 hours. Patient is afebrile. NG tube was out. Patient had a good bowel movement yesterday. Surgical drain still in place. The wound culture positive for staph aureus. Patient is presently on IV cefoxitin. No complaints from the patient. She said she is to take glyburide at home for diabetes mellitus and hydrochlorothiazide for hypertension at home. hemo Globin A1c came back 6. 12/01/2018-no acute events in the last 24 hours. Patient is afebrile. Able to tolerate the clear liquids. Had a good bowel movement yesterday. Complains of less pain today. Blood pressure today is 151/89. 12/02/2018 no acute events in the last 24 hours. Patient is afebrile. She is able to tolerate the diet. Good bowel movements. Surgical drain is in still in place. The wound culture shows staph aureus and Klebsiella. Patient is on cefoxitin. Reason For Visit: STRANGULATED VENTRAL HERNIA Physical Exam Vital Signs: Temp Pulse Resp BP Pulse Ox 98.8 F 66 17 131/69 H 99 12/02/18 07:53 12/02/18 07:53 12/02/18 07:53 12/02/18 07:53 12/02/18 07:53 Intake & Output 12/01/18 12/02/18 12/03/18 06:59 06:59 06:59 Intake Total 2287 1778 Output Total 3625 1355 Balance -1338 423 Weight 108.3 kg 107.6 kg General appearance: PRESENT: no acute distress Head exam: PRESENT: atraumatic Eye exam: PRESENT: PERRLA Mouth exam: PRESENT: moist, tongue midline Neck exam: ABSENT: carotid bruit, JVD, lymphadenopathy, thyromegaly Respiratory exam: PRESENT: clear to auscultation michael. ABSENT: rales, rhonchi, wheezes Cardiovascular exam: PRESENT: RRR. ABSENT: diastolic murmur, rubs, systolic murmur GI/Abdominal exam: PRESENT: other - [place] present in the midline. Surgical drain is in place. Bowel sounds are present. Abdomen is nontender. Extremities exam: PRESENT: full ROM. ABSENT: calf tenderness, clubbing, pedal edema Neurological exam: PRESENT: alert, awake, oriented to person, oriented to place, oriented to time, oriented to situation, CN II-XII grossly intact. ABSENT: motor sensory deficit Psychiatric exam: PRESENT: appropriate affect, normal mood. ABSENT: homicidal ideation, suicidal ideation Results Laboratory Results: 12/02/18 04:25 12/02/18 04:25 12/02/18 12/02/18 04:25 04:25 WBC 4.5 RBC 3.52 L Hgb 10.1 L Hct 30.1 L MCV 85 MCH 28.6 MCHC 33.5 RDW 14.3 H Plt Count 228 Seg Neutrophils % 55.7 Lymphocytes % 27.9 Monocytes % 11.0 Eosinophils % 5.1 Basophils % 0.3 Absolute Neutrophils 2.5 Absolute Lymphocytes 1.3 Absolute Monocytes 0.5 Absolute Eosinophils 0.2 Absolute Basophils 0.0 Sodium 141.7 Potassium 3.6 Chloride 107 Carbon Dioxide 26 Anion Gap 9 BUN 6 L Creatinine 0.58 Est GFR ( Amer) > 60 Est GFR (Non-Af Amer) > 60 Glucose 97 Calcium 8.4 11/26/18 22:25 Blood Blood Culture - Final NO GROWTH IN 5 DAYS 11/26/18 21:10 Blood Blood Culture - Final NO GROWTH IN 5 DAYS Impressions: Abdomen X-Ray 11/26/18 11:36 IMPRESSION: 1. NO RADIOGRAPHIC EVIDENCE FOR ACUTE ABDOMINAL DISEASE. 2. Large calcified uterine fibroid. Abdomen/Pelvis CT 11/26/18 13:51 IMPRESSION: 1. There is some mildly dilated small bowel in a ventral hernia and within the pelvis concerning for closed loop obstruction. 2. Anterolisthesis of L4 on L5. 3. Ascites. KUB X-Ray 11/26/18 20:56 IMPRESSION: On the second submitted image, the enteric tube is likely in the stomach. Other findings, as above copyright 2011 [employer]- All Rights Reserved Assessment & Plan - Diagnosis (1) Strangulated ventral incisional hernia Is this a current diagnosis for this admission?: Yes Plan: 11/29/2018-patient underwent surgery for strangulated ventral hernia. Wound cultures came back positive for gram-positive cocci in clusters. Patient is presently on cefotoxin and Zosyn. Plan is to continue the present management. 11/30/2018-patient was admitted for strangulated ventral hernia status post laparotomy. Wound cultures are positive for staph aureus patient is presently on cefoxitin. Patient is afebrile T-max is 98.6. Patient have a good bowel m ovement yesterday NG tube was removed yesterday. Presently she is on ice chips. Surgical drain still in place. 12/01/2018-patient was admitted for strangulated ventral hernia status post laparotomy. Still have the surgical drain, had a good bowel movement yesterday. Able to tolerate the clear liquids. Pain scale according to the patient 2-3 x 10. Presently on a cefoxitin. Wound cultures came back positive for staph aureus. She is afebrile for the last several days. 12/02/2018-patient able to tolerate the diet. She has good bowel movements. Bowel sounds are present. Surgical drain is still in place. Wound cultures positive for staph aureus and Klebsiella and cefoxitin. Patient is afebrile for the last 3-4 days. (2) Hypertension Qualifiers: Hypertension type: other secondary hypertension Qualified Code(s): I15.8 - Other secondary hypertension Is this a current diagnosis for this admission?: Yes Plan: 11/29/2018-patient blood pressure today is 130/66 well-controlled. Patient is on hydralazine 10 mg IV every 6 as needed for blood pressure management. Going to start on lisinopril 10 mg p.o. daily from today. She is given the history of hypertension but if she is not any antihypertensive medications at home. 11/30/2018-patient blood pressure today is 129/69. She was started on lisinopril yesterday but it was changed to amlodipine because patient is allergic to lisinopril. Presently she is on amlodipine 10 mg p.o. daily. 12/01/2018-patient blood pressure today is 151/89. On amlodipine 10 mg p.o. daily. Patient is needing IV fluids so IV fluids are discontinued from today. Plan to check the blood pressures every shift. 12/02/2018-blood pressure today is 131/70 well controlled. On amlodipine 10 mg p.o. daily. Plan is to continue the present management. (3) Diabetes Is this a current diagnosis for this admission?: Yes Plan: 11/29/2018-patient has history of diabetes mellitus we going to check her blood sugars before meals and at bedtime plan to check a hemoglobin A1c. Latest blood sugar is 75 but patient is n.p.o. 11/30/2018-patient is given the history of diabetes mellitus on glipizide at home. Hemoglobin A1c 6.0 latest blood sugar is 109 well controlled. Dietary consult is going to be requested for diabetic education. 12/01/2018-patient history of type 2 diabetes mellitus, on glipizide at home. Here in the hospital she is on insulin sliding scale before meals and at bedtime the blood sugar is 99 this morning. Plan is to continue the present management. 12/02/2018 100 patient history of type 2 diabetes mellitus on insulin sliding scale before meals and at bedtime. Latest blood sugar is 96. Well controlled. (4) Obesity (BMI 30-39.9) Is this a current diagnosis for this admission?: Yes - Time Time Spent with patient: 15-24 minutes Anticipated discharge: Home
[2018-12-02] MEDS: HEPARIN SOD (PORCINE) 5,000 UNIT/ML 1 ML SYRINGE SUBCUT SCH (09:48)
[2018-12-02] MEDS: AMLODIPINE BESYLATE 10 MG TABLET PO SCH (09:50)
[2018-12-02] MEDS ORDERED: FAMOTIDINE 20 MG TABLET PO SCH (10:00)
[2018-12-02 11:00] VITALS: BP 166/84
--- NOTE | 2018-12-12 09:15 | PDOC DISCHARGE SUMMARY ---
General - Admit/Disc Date/PCP Admission Date/Primary Care Provider: 11/26/18 15:41 Discharge Date: 12/02/18 - Discharge Diagnosis (1) Strangulated ventral incisional hernia Is this a current diagnosis for this admission?: Yes - Additional Information Resuscitation Status: Full Code Discharge Diet: As Tolerated Discharge Activity: No Lifting Over 10 Pounds Home Medications: No Home Medications 11/27/18 History of Present Illness History of Present Illness: MC VILLELA is a 58 year old female admitted to the hospital with a strangulated ventral hernia. She was taken to the operating room shortly after admission for definitive surgical intervention. Hospital Course Hospital Course: After surgery, the patient was taken to the floor. Her NG tube remained in place until bowel function resumed. The patient began ambulating, and her bowel function returned. Her NG tube was removed, and she was begun on liquids. She tolerated liquids well, and was started on a regular diet. By 12/02/2018 the patient was ambulating, tolerating a diet, her pain was controlled with oral pain medications, and it was felt that she had reached maximal hospital benefit and was fit for discharge. Physical Exam Vital Signs: Temp Pulse Resp BP Pulse Ox 98.8 F 66 17 166/84 H 99 12/02/18 10:58 12/02/18 10:58 12/02/18 10:58 12/02/18 10:58 12/02/18 10:58 Results Laboratory Results: 12/02/18 04:25 12/02/18 04:25 Impressions: Abdomen X-Ray 11/26/18 11:36 IMPRESSION: 1. NO RADIOGRAPHIC EVIDENCE FOR ACUTE ABDOMINAL DISEASE. 2. Large calcified uterine fibroid. Abdomen/Pelvis CT 11/26/18 13:51 IMPRESSION: 1. There is some mildly dilated small bowel in a ventral hernia and within the pelvis concerning for closed loop obstruction. 2. Anterolisthesis of L4 on L5. 3. Ascites. KUB X-Ray 11/26/18 20:56 IMPRESSION: On the second submitted image, the enteric tube is likely in the stomach. Other findings, as above copyright 2010 [employer]- All Rights Reserved Qualifiers - * PATIENT BEING DISCHARGED WITH ANY OF THE FOLLOWING DIAGNOSIS: No Plan Discharge Plan: Discharge home. Diet as tolerated. Activity: No lifting greater than 10 pounds x 6 weeks. Follow-up with surgeon or primary doctor in 7-10 days for drain and staple removal (the patient is from [place]). If a local [place] physician cannot be found to help care for her, she may always return to [place] for follow-up care. Time Spent: Less than 30 Minutes
--- NOTE | 2018-12-27 18:26 | Progress Note ---
Provider Note Provider Note: Please, note the followin) An incidental appendectomy was performed during the patient's surgery on 11/26/18. 2) The appendix did not look acutely inflamed; rather, it appeared to be normal without any macroscopic or clinical features of inflammation or pathology Dr. Moya
== END 2018-12-02 11:30 | disposition home or self-care (01) | DRG 342 ==
LOC: ER 10:52 → EH 15:41 → 4N 21:50
PROVIDERS: ADMIT Surgery; ATTEND Surgery
PROC: 0DTJ0ZZ Resection of Appendix, Open Approach (ICD-10-PCS; 2018-11-26)
PROC: 0WUF0JZ Supplement Abdominal Wall with Synthetic Substitute, Open Approach (ICD-10-PCS; 2018-11-26)
PROC: 0KNK0ZZ Release Right Abdomen Muscle, Open Approach (ICD-10-PCS; 2018-11-26)
PROC: 0KNL0ZZ Release Left Abdomen Muscle, Open Approach (ICD-10-PCS; 2018-11-26)
PROC: 0W9F00Z Drainage of Abdominal Wall with Drainage Device, Open Approach (ICD-10-PCS; 2018-11-26)
PROC: 0HD7XZZ Extraction of Abdomen Skin, External Approach (ICD-10-PCS; 2018-11-26)
PROC: 0D9670Z Drainage of Stomach with Drainage Device, Via Natural or Artificial Opening (ICD-10-PCS; 2018-11-26)
PROC: 0DBB0ZX Excision of Ileum, Open Approach, Diagnostic (ICD-10-PCS; principal; 2018-11-26 19:30)
DX: K43.6 Other and unspecified ventral hernia with obstruction, without gangrene (principal); K55.9 Vascular disorder of intestine, unspecified; K56.7 Ileus, unspecified; E66.01 Morbid (severe) obesity due to excess calories; E11.9 Type 2 diabetes mellitus without complications; I10 Essential (primary) hypertension; B95.61 Methicillin susceptible Staphylococcus aureus infection as the cause of diseases classified elsewhere; B95.4 Other streptococcus as the cause of diseases classified elsewhere; B96.1 Klebsiella pneumoniae [K. pneumoniae] as the cause of diseases classified elsewhere; B96.7 Clostridium perfringens [C. perfringens] as the cause of diseases classified elsewhere; Z79.899 Other long term (current) drug therapy; Z79.84 Long term (current) use of oral hypoglycemic drugs; Z88.8 Allergy status to other drugs, medicaments and biological substances
CPT/HCPCS: 36415; 74018; 74019; 74177; 790; 80048; 80053; 81001; 82962; 83036; 83605; 83690; 83735; 85025; 87040; 87070; 87075; 87077; 87186; 87205; 88302; 88304; 88307; 93005; 93010; 94799; 96361; 96374; 96375; 99285; C1781; J0131; J0330; J0360; J0694; J1100; J1170; J1644; J2250; J2270; J2370; J2405; J2543; J2704; J3010; J3480; J3490; J7030; S0028